=== PATIENT | female | born 1995 | race Caucasian/White ===

== ENCOUNTER → 2018-03-29 13:04 | Outpatient (CLI) | payer MEDICAID, SELFPAY ==
--- NOTE | 2018-03-29 13:07 | US_ITS ---
US breast LT complete - Ordering Physician: Chadwick Walters MD Patient Age: 23 years: Female HISTORY: ITS.REASON: BREAST CYST palpable area left breast one year TECHNIQUE: Ultrasound left breast COMPARISON : December 2009 ultrasound left breast FINDINGS 5:00: Today's studies do reveal a hypoechoic more likely solid nodule at 5:00 left breast towards Central breast, near nipple.(Unlikely Cyst with prominent debris, particularly with the lack of good transmission seen here.). There is mild/moderate hyperechoic rim about this otherwise homogeneous hypoechoic nodule. Overall this entire area measures up to 14 maximum length X just less than 1 cm AP. (There is a subtle mildly hypoechoic ringlike halo about this solid nodule associated included in this 14 mm x 10 mm measurement) . In this age younger patient with a smooth round margin I suspect this most likely likely reflects a benign fibroadenoma ..- This could be confirmed with ultrasound-guided FNA or excisional biopsy.. Either Percutaneous or surgical biopsy warranted, particularly since it is developed an become evident since 2014 left breast ultrasound . Perhaps consider full excision of this mass for definitive removal once and for all.. Less desirable alternative would be follow-up in 3 months for this by far most likely benign feature. 11:00: deep left breast there is a small 5.9 mm length dense 3.7 mm AP hypoechoic solid nodule. Likely a second small fibroadenoma Moderately dense breast otherwise encountered. . No cyst identified Axillary Survey reveals no suspicious nodes. The largest benign-appearing lymph node measuring up to nearly 1.5 cm slightly bilobed but with normal Central fat and thin cortex. IMPRESSION: ...... 1. . 5 o'clock position left breast The palpable area here corresponds up to 14 mm solid appearing breast nodule. . 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 2. Consider a given its overall size and progression since previous study, suggesting biopsy or excision.. These would confirm benign character as anticipated.. A less desirable but Not unreasonable alternative would be follow-up ultrasound 3 months, & could be offered 3. At 11:00. Small near 6 mm solid nodule, deep left breast. Likely a second small fibroadenoma.. Follow-up ultrasound in 6-8 months suggested to follow this area BI-RADS Category: 4 minimally Suspicious mass/nodule.. Likely benign fibroadenoma. 5:00 left breast RECOMMENDED FOLLOW-UP: BIO - BIOPSY RECOMMENDED ultrasound-guided biopsy, or a definitive surgical excision recommended. (A letter has been sent to the patient regarding results of the study.)
== END ==
PROVIDERS: Family Provider Family Medicine; Visit Provider Obstetrics & Gynecology
DX: N60.09 Solitary cyst of unspecified breast (principal)
CPT/HCPCS: 76641

== ENCOUNTER → 2018-04-17 10:52 | Outpatient (CLI) | payer MEDICAID, SELFPAY ==
[2018-04-17 10:55] LABS: Microscopic, Urine URINE MICROSCOPIC (MICROSCOPIC)
[2018-04-17 11:25] LABS: Appearance,Urine CLEAR (Clear); Bilirubin,Urine Negative (Negative); Blood, Urine Negative (Negative); Color,Urine YELLOW (Yellow); Glucose,Urine (UA) Negative (Negative); Ketones,Urine Negative (Negative); Leukocyte Esterase,Urine Negative (Negative); Nitrate,Urine Negative (Negative); Protein,Urine Negative (Negative); Specific Gravity, Urine <= 1.005 (1.005-1.030); Urobilinogen,Urine 0.2 EU/dl (0.2)
[2018-04-17 11:57] LABS: Basophils # 0.1 K/mm3 (0-0.2); Basophils % 0.6 % (0.1-2.0); Eosinophils # 0.3 K/mm3 (0.0-0.4); Eosinophils % 3.5 % (0.1-12.0); Hematocrit 42.5 % (37.0-47.0); Hemoglobin 13.9 g/dL (12.2-16.2); Lymphocytes # 2.3 K/mm3 (0.7-4.5); Lymphocytes % 25.7 K/mm3 (10-50); Mean Corpuscular HGB Conc 32.8 g/dL (31.8-35.4); Mean Corpuscular Hemoglobin 32.3 pg (27.0-31.2); Mean Corpuscular Volume 98.3 fl (81-99); Mean Platelet Volume 7.1 fl (7.4-10.4); Monocytes # 0.5 K/mm3 (0.1-1.0); Neutrophils # 5.9 K/mm3 (1.8-7.8); Neutrophils % 65.2 % (37.0-80.0); Platelet Count 369 K/mm3 (142-424); Red Blood Count 4.32 M/mm3 (4.20-5.40); Red Cell Distribution Width 12.2 % (11.5-17.5); White Blood Count 9.1 K/mm3 (4.8-10.8)
[2018-04-17 12:17] LABS: Bacteria,Urine Trace /lpf; Urine Pregnancy, HCG Qual. Negative (Negative); WBC,Urine Occasional #/hpf (0-3)
[2018-04-17 12:50] LABS: Alanine Aminotransferase 33 U/L (12-78); Albumin/Globulin Ratio 1.1 (1.1-1.8); Alkaline Phosphatase 90 U/L (46-116); Anion Gap 12.3 mEq/L (5-15); Aspartate Amino Transferase 18 U/L (15-37); Bilirubin,Total 0.3 mg/dL (0.2-1.0); Blood Urea Nitrogen 13 mg/dL (7-18); Calcium 9.3 mg/dL (8.5-10.1); Carbon Dioxide 27 mmol/L (21.0-32.0); Chloride 104 mmol/L (98-107); Creatinine,Serum 0.56 mg/dL (0.55-1.02); Estimated Glomerular Filt Rate 133 ml/min (>60); GFR (African American) 161 ML/MIN (>60); Globulin 3.6 gm/dl (1.3-3.2); Glucose 88 mg/dL (74-106); Potassium 4.3 mmoL/L (3.5-5.1); Sodium 139 mmol/L (136-145); Total Protein,Serum 7.6 gm/dL (6.4-8.2)
== END ==
PROVIDERS: Visit Provider Obstetrics & Gynecology
DX: Z01.818 Encounter for other preprocedural examination (principal); N87.9 Dysplasia of cervix uteri, unspecified
CPT/HCPCS: 36415; 80053; 81001; 81025; 85025

== ENCOUNTER → 2018-05-02 11:19 | Outpatient (CLI) | payer MEDICAID, SELFPAY ==
--- NOTE | 2018-05-02 11:20 | US_ITS ---
US breast LT complete, US organ site (breast) US biopsy guidance, Ordering Physician: Alex Long MD Patient Age: 23 years: Female HISTORY: ITS.REASON: LEFT breast nodule at5:00 seen on previous ultrasound left breast 03/29/2018. Previously noted to be th no palpable TECHNIQUE: Ultrasound LEFT breast followed by ultrasound-guided core biopsies of left discrete hypoechoic left breast nodule ---------FINDINGS AND PROCEDURE: ======= ULTRASOUND LEFT BREAST; Ovoid Solid nodule is identified 5 o'clock position left breast. Measures up to 1.2 cm maximum dimension. .These images also determined the best approach for access to perform aspiration biopsy of this nodule. Scanning by Dr. Peters ======= ULTRASOUND-GUIDED Tommy-Cut core BIOPSY LEFT BREAST . . patient received Xanax 0.5mg Prior to the procedure for comfort and mild sedation. Following sterile preparation as well as local skin, and cautious deeper placement of Xylocaine anestheticUnder ultrasound guidance the true cut biopsy needle was advanced to the nodule and positioned. Position of the needle sample trough was confirmed by ultrasound within the nodule on majority of these 5 Tommy-Cut biopsy passes. However I would with dense breast there is less than a robust throw of the core biopsy needle. Mainly utilized 16-gauge needle with 18-gauge on the last pass. (The latter which account less resistance along this established tract and appeared on target as well). Several core biopsy specimen material from the Left breast nodule were observed in formalin and submitted for histology Patient tolerated procedure well. ======= PATHOLOGY/Histology Diagnosis..Negative for carcinoma Benign breast tissue with proliferative fibrocystic changes. Rare microcalcifications. Note: I called and discussed this case with the reading pathologist as I anticipated fibroadenoma diagnosis.. Still this could be a focal area of fibrous change but would favor & expected a fibroadenoma by ultrasound appearance. Thus Would Suggest 4-6 month follow-up to confirm stable benign character of this nodule If Desire further investigation a more aggressive mammotome percutaneous biopsy could be offered or performed., Or possibly an excisional biopsy if preferred for total excision. Since I strongly favor this is a benign nodule the follow-up in 4-6 months I believe would be reasonable .............IMPRESSION: ..................... 1.2 cm ovoid hypoechoic nodule 5 o'clock position LEFT breast identified & targeted for today's biopsy A total of 5 Tommy-Cut core biopsies passes were obtained in this region each after verifying needle was in satisfactory position.. There was less than robust throw with firing of each Tommy-Cut needle pass in this very dense breast tissue.-However we obtained Obtain generous amount core biopsy tissue. . Pathology report demonstrated benign findings on pathology-benign fibrocystic changes, but did not Confirm fibroadenoma as anticipated by ultrasound.. . These results were also discussed with Dr. Long Currently Suggest follow-up LEFT breast ultrasound in 4- 6 months to confirm relative stability by far most likely benign solid nodule... . Alternatively if this remains a concern to the patient or, or progresses with palpation/clinically ... A more aggressive mammotome biopsy could be performed. Certainly if there is any progressive enlargement clinically-this may warrant repeat biopsy BI-RADS Category: 3 Probably Benign Finding Short Term Follow-up most likely benign feature but with benefit from 4- 6 month follow-up ultrasound left breast RECOMMENDED FOLLOW-UP: 6M - 6 MONTH FOLLOW-UP LEFT breast ultrasound. 4-6 months recommended this 23-year-old, along with santiago
== END ==
PROVIDERS: Visit Provider Surgery
DX: N63.23 Unspecified lump in the left breast, lower outer quadrant (principal)
CPT/HCPCS: 19083; 76641; 76942

== ENCOUNTER → 2018-08-20 10:59 | Outpatient (CLI) | payer MEDICAID, SELFPAY ==
--- NOTE | 2018-08-20 11:03 | US_ITS ---
US breast LT complete Ordering Physician: Alex Long MD Patient Age: 23 years: Female HISTORY: ITS.REASON: Nodule TECHNIQUE: Ultrasound left breast including axillary survey COMPARISON :03/29/2018, 1714May 02, 2018 FINDINGS 5:00 nodule deep breast near chest wall again seen. This resides More central breast and appears fairly stable with no appreciable change. Well-defined margin, ovoid slight hypoechoic nodule at 5 o'clock position left breast.. It measures 1.2 cm length x 1 cm transverse x 0.7 cm AP. This is show no appreciable change when measured from similar points and compared back to the March 2018 and April 2018 ultrasound left breast study... At 5:00 outer breast to again see a small hypoechoic nodule measuring 6.1 mm. Is seen no significant change Axillary survey unremarkable. ------IMPRESSION: 2 stable nodular densities are again seen at the right breast-have not changed appreciably since last years studies further support benign/ indolent nature.: .... The more generous nodule at deep breast 5 o'clock position appears stable with no appreciable change since last years studies... (Biopsy of this region was performed Apr 2018 revealed fibrocystic changes but did not reveal definitive fibroadenoma as was anticipated) ... The smaller nodule at the outer breast 5:00 appears fairly stable as well & can be followed. I would suggest a follow-up ultrasound again in 6 months since these areas of remained stable by ultrasound.. .. However We could perform repeat biopsy of the larger nodule if so desired if it changes or enlarges; or remains a concern clinically BI-RADS Category: 3 Probably Benign Finding Short Term Follow-up RECOMMENDED FOLLOW-UP: RECOMMENDED FOLLOW-UP: 6M - 6 MONTH FOLLOW-UP (A letter has been sent to the patient regarding results of the study.)
== END ==
PROVIDERS: Visit Provider Surgery
DX: N63.23 Unspecified lump in the left breast, lower outer quadrant (principal)
CPT/HCPCS: 76641

== ENCOUNTER → 2018-09-20 08:17 | Outpatient (CLI) | payer MEDICAID, SELFPAY ==
--- NOTE | 2018-09-20 08:21 | US_ITS ---
US gallbladder Ordering Physician: Alex Long MD Patient Age: 23 years: Female HISTORY: ITS.REASON: abdominal pain and diarrhea TECHNIQUE: Ultrasound right upper quadrant. COMPARISON :April 2013 ultrasound right upper quadrant FINDINGS Pancreas. Unremarkable head body and medial tail are well visualized. Liver no focal lesions. No biliary ductal dilatation. Portal vein normal appearance is is hepatic vein survey. Gallbladder. No gallstones. Minimal sludge in gallbladder. Gallbladder wall normal thickness. Common duct normal diameter 3.5 mm at hilum of liver. Right kidney appears normal measuring 2.6 seem in length no hydronephrosis nor mass. IMPRESSION . no gallstones. Minimal sludge in gallbladder. Otherwise unremarkable right upper quadrant ultrasound. .
== END ==
PROVIDERS: Visit Provider Surgery
DX: R10.9 Unspecified abdominal pain (principal); R19.7 Diarrhea, unspecified
CPT/HCPCS: 76705

== ENCOUNTER → 2018-09-21 16:26 | Outpatient (CLI) | payer MEDICAID, SELFPAY | PROVIDERS: Visit Provider Nurse Practitioner Obstetrics & Gynecology | DX: N76.4 Abscess of vulva (principal) | CPT/HCPCS: 87070; 87077; 87186; 87205 ==

== ENCOUNTER → 2018-12-12 09:45 | Outpatient (CLI) | payer MEDICAID, SELFPAY | PROVIDERS: Visit Provider Nurse Practitioner Obstetrics & Gynecology | DX: N76.4 Abscess of vulva (principal) | CPT/HCPCS: 87070; 87077; 87186; 87205 ==

== ENCOUNTER → 2019-01-10 12:22 | Outpatient (CLI) | payer MEDICAID, SELFPAY ==
[2019-01-10 15:05] LABS: HCG,Quantitative 1 mIU/mL
== END ==
PROVIDERS: Visit Provider Nurse Practitioner Obstetrics & Gynecology
DX: Z34.90 Encounter for supervision of normal pregnancy, unspecified, unspecified trimester (principal)
CPT/HCPCS: 36415; 84702

== ENCOUNTER → 2019-05-14 09:44 | Outpatient (CLI) | payer MEDICAID, SELFPAY | PROVIDERS: Visit Provider Obstetrics & Gynecology | DX: Z34.90 Encounter for supervision of normal pregnancy, unspecified, unspecified trimester (principal) | CPT/HCPCS: 36415; 80305; 84443; 85025; 86592; 86703; 86762; 86850; 87340; 87380; G0432 ==

== ENCOUNTER → 2019-05-14 12:51 | Outpatient (CLI) | payer MEDICAID, SELFPAY ==
[2019-05-14 10:15] LABS: Basophils % 0.3 % (0.1-2.0); Eosinophils # 0.1 K/mm3 (0.0-0.4); Eosinophils % 0.9 % (0.1-12.0); Hematocrit 37.3 % (37.0-47.0); Hemoglobin 12.1 g/dL (12.2-16.2); Lymphocytes # 1.8 K/mm3 (0.7-4.5); Lymphocytes % 20.7 % (10-50); Mean Corpuscular HGB Conc 32.5 g/dL (31.8-35.4); Mean Corpuscular Volume 98.4 fl (81-99); Mean Platelet Volume 8.1 fl (7.4-10.4); Monocytes # 0.4 K/mm3 (0.1-1.0); Monocytes % 4.7 % (1.7-9.3); Neutrophils # 6.4 K/mm3 (1.8-7.8); Neutrophils % 73.3 % (37.0-80.0); Platelet Count 348 K/mm3 (142-424); Red Blood Count 3.79 M/mm3 (4.20-5.40); Red Cell Distribution Width 12.1 % (11.5-17.5); White Blood Count 8.8 K/mm3 (4.8-10.8)
[2019-05-14 11:55] LABS: Thyroid Stimulating Hormone 1.79 uIU/ml (0.358-3.740)
--- NOTE | 2019-05-14 12:53 | US_ITS ---
PROCEDURE: US THYROID CLINICAL INDICATION: ABNORMAL THYROID A enlarged thyroid COMPARISON: No exams were available for comparison FINDINGS: Right lobe: 4.4 x 1.2 x 1.7 cm Left lobe: 4.3 x 1.6 x 1.8 cm Isthmus: 2 mm in thickness Additional findings: Homogeneous echogenicity. No discrete mass or cyst evident IMPRESSION: Mildly enlarged thyroid gland. No nodules apparent Dictated by: Nickolas Beltrán MD 05/14/2019 19:36 Electronically signed by Nickolas Beltrán MD in [place] 05/14/2019 19:36
[2019-05-14 19:40] LABS: Amphetamine/Metha Screen,Urine Negative ng/mL (<1000); Barbiturates Screen,Urine Negative ng/mL (<200); Benzodiazepines Screen,Urine Negative ng/mL (<200); Cannabinoid Screen,Urine Negative ng/mL (<50); Cocaine Screen,Urine Negative ng/mL (<300); Methadone Screen,Urine Negative ng/mL (<300); Opiate Screen,Urine Negative ng/mL (<300); Phencyclidine Screen,Urine Negative ng/mL (<25)
[2019-05-15 07:35] LABS: Hepatitis B Surface Antigen Negative (Negative); Hepatitis C Antibody 0.1 s/co ratio (0.0-0.9)
[2019-05-15 11:46] LABS: HIV Screen 4th Generation wRfx Non Reactive (Non Reactive); Rapid Plasma Reagin Ab Titer Non Reactive (NonRea<1:1); Rubella Antibodies, IgG 9.58 index (Immune >0.99)
== END ==
PROVIDERS: Visit Provider Obstetrics & Gynecology
DX: R94.6 Abnormal results of thyroid function studies (principal)
CPT/HCPCS: 36415; 76536; 80305; 84443; 85025; 86592; 86703; 86762; 86850; 87340; 87380; G0432

== ENCOUNTER → 2019-08-28 10:19 | Outpatient (CLI) | payer OTHER, SELFPAY ==
--- NOTE | 2019-08-28 10:19 | US_ITS ---
PROCEDURE: US OB /MATERNAL DETAIL CLINICAL INDICATION: US OB Complete Anatomy exam COMPARISON: No exams were available for comparison FINDINGS: There is a single live fetus in cephalic presentation. heart body motion noted. Placenta is fundal in implantation and grade 1. Complete survey performed and was unremarkable on the submitted images as in PACS. No discrete anomalies identified on survey imaging by technologist. Active fetus. Three-vessel cord with satisfactory umbilical cord insertion. 4- chamber heart noted. Survey of brain & ventricles Unremarkable. Face and neck survey unremarkable. Diaphragm and chest views unremarkable. Abdomen: Both kidneys noted and unremarkable. Stomach noted and satisfactory. Spine: Survey of the spine satisfactory with no anomalies identified nor imaged. Both arms and legs noted. Amniotic Fluid: Adequate. Maternal adnexa: No significant findings. Measurements: Average ultrasound age 19weeks 6days. Gestational Age 20 weeks 0 days Estimated due date by ultrasound age 0701/16/2020. Estimated weight 320g BPD = 20weeks 1day OFD = 20 weeks 1 day HC = 19weeks 2days AC = 20weeks FL = 20weeks Growth Percentile= 40% Heart Rate = 139bpm Cerebellum = 19weeks 6days Humerus = 20weeks 2days HC/AC is 1.13 CI is 0.8 FL/BPD is 0.69 FL/AC is 0.22 IMPRESSION: There is a live intrauterine gestation in cephalic presentation with an average ultrasound age 19 weeks and 6 days. No obvious anomalies. Please see above for detail Dictated by: Nickolas Beltrán MD 08/28/2019 17:34 Electronically signed by Nickolas Beltrán MD in [place] 08/28/2019 17:34
== END ==
LOC: RAD 10:19
PROVIDERS: PCP Obstetrics & Gynecology; Visit Provider Obstetrics & Gynecology
DX: Z36.0 Encounter for antenatal screening for chromosomal anomalies (principal)
CPT/HCPCS: 76811

== ENCOUNTER → 2019-10-22 12:59 | Outpatient (CLI) | payer OTHER, SELFPAY ==
[2019-10-22 14:07] LABS: Glucose,Fasting 80 mg/dl (74-100)
[2019-10-22 17:03] LABS: Glucose 1 Hour 151 mg/dL (74-100)
== END ==
PROVIDERS: Visit Provider Obstetrics & Gynecology
DX: Z34.90 Encounter for supervision of normal pregnancy, unspecified, unspecified trimester (principal)
CPT/HCPCS: 36415; 82951

== ENCOUNTER → 2019-11-12 07:14 | Outpatient (CLI) | payer OTHER, SELFPAY ==
[2019-11-12 08:06] LABS: Glucose,Fasting 85 mg/dl (74-100)
[2019-11-12 09:22] LABS: Glucose 1 Hour 165 mg/dL (74-100)
[2019-11-12 10:06] LABS: Glucose 2 Hour 147 mg/dL (74-100)
[2019-11-12 10:47] LABS: Glucose 3 Hour 128 mg/dL (74-100)
== END ==
PROVIDERS: Visit Provider Obstetrics & Gynecology
DX: Z34.90 Encounter for supervision of normal pregnancy, unspecified, unspecified trimester (principal)
CPT/HCPCS: 36415; 82951

== ENCOUNTER → 2019-12-10 10:24 | Outpatient (CLI) | payer OTHER, SELFPAY ==
--- NOTE | 2019-12-10 10:24 | US_ITS ---
PROCEDURE: US OB FOLLOW UP CLINICAL INDICATION: US OB Growth and ABBY- SGA COMPARISON: US OB /MATERNAL DETAIL from 08/28/2019 FINDINGS: The fetus is in a cephalic presentation. The placenta is in an anterior-posterior wraparound presentation. The amniotic fluid is at the lower limits of normal. Visualized anatomy is unremarkable. The fetus is active. Average gestational age is approximately 34 weeks. The heart rate is 128 beats per minute IMPRESSION: Amniotic fluid at the lower limits of normal otherwise unremarkable Dictated by: Ramiro Delgado 12/10/2019 12:15 Electronically signed by Ramiro Delgado in [place] 12/10/2019 12:15
== END ==
LOC: RAD 10:24
PROVIDERS: PCP Obstetrics & Gynecology; Visit Provider Obstetrics & Gynecology
DX: O36.5990 Maternal care for other known or suspected poor fetal growth, unspecified trimester, not applicable or unspecified (principal)
CPT/HCPCS: 76816; 86403

== ENCOUNTER → 2019-12-10 15:27 | Outpatient (CLI) | payer OTHER, SELFPAY | PROVIDERS: Visit Provider Obstetrics & Gynecology | DX: Z34.90 Encounter for supervision of normal pregnancy, unspecified, unspecified trimester (principal) | CPT/HCPCS: 86403 ==

== ENCOUNTER → 2020-01-06 13:06 | Outpatient (CLI) | payer OTHER, SELFPAY ==
[2020-01-06 13:26] LABS: Basophils % 0.4 % (0.1-2.0); Eosinophils # 0.1 K/mm3 (0.0-0.4); Eosinophils % 1.2 % (0.1-12.0); Hematocrit 28.5 % (37.0-47.0); Hemoglobin 9.7 g/dL (12.2-16.2); Lymphocytes % 22.3 % (10-50); Mean Corpuscular HGB Conc 33.9 g/dL (31.8-35.4); Mean Corpuscular Hemoglobin 28.4 pg (27.0-31.2); Mean Corpuscular Volume 83.9 fl (81-99); Mean Platelet Volume 8.5 fl (7.4-10.4); Monocytes # 0.4 K/mm3 (0.1-1.0); Monocytes % 4.5 % (1.7-9.3); Neutrophils # 6.4 K/mm3 (1.8-7.8); Neutrophils % 71.7 % (37.0-80.0); Platelet Count 359 K/mm3 (142-424); Red Cell Distribution Width 13.5 % (11.5-17.5); White Blood Count 8.9 K/mm3 (4.8-10.8)
[2020-01-06 16:51] LABS: Coronavirus 19 IgG Antibody Negative (Negative); Coronavirus 19 IgM Antibody Negative (Negative)
== END ==
PROVIDERS: Visit Provider Obstetrics & Gynecology
DX: Z01.818 Encounter for other preprocedural examination (principal)
CPT/HCPCS: 36415; 85025; 86328; 86850

== ENCOUNTER 2020-01-07 05:25 | Inpatient (IN) | payer OTHER, SELFPAY ==
[2020-01-07] VITALS (17 sets, daily range): BP systolic 124–149; BP diastolic 62–93; PULSE 59–87; RESP 12–27; TEMP 36.4–36.8; O2SAT 98–100; BMI 30.3
[2020-01-07 06:07] LABS: Microscopic, Urine URINE MICROSCOPIC (MICROSCOPIC)
[2020-01-07 06:25] LABS: Appearance,Urine CLEAR (Clear); Bilirubin,Urine Negative (Negative); Blood, Urine Negative (Negative); Color,Urine YELLOW (Yellow); Glucose,Urine (UA) Negative (Negative); Ketones,Urine Negative (Negative); Leukocyte Esterase,Urine Negative (Negative); Nitrate,Urine Negative (Negative); PH,Urine 7.5 (5.0-8.5); Protein,Urine Negative (Negative); Urobilinogen,Urine 0.2 EU/dl (0.2)
[2020-01-07 06:36] LABS: Amphetamine/Metha Screen,Urine Negative ng/ml (<1000)
[2020-01-07 06:37] LABS: Barbiturates Screen,Urine Negative ng/ml (<200); Benzodiazepines Screen,Urine Negative ng/ml (<200)
[2020-01-07 06:38] LABS: Chloride 105 mmol/L (98-107); Sodium 135 mmol/L (136-145)
[2020-01-07 06:38] LABS: Cannabinoid Screen,Urine Negative ng/ml (<50)
[2020-01-07 06:39] LABS: Cocaine Screen,Urine Negative ng/ml (<300); Methadone Screen,Urine Negative ng/ml (<300)
[2020-01-07 06:40] LABS: Opiate Screen,Urine Negative ng/ml (<300)
[2020-01-07 06:41] LABS: Bacteria,Urine 1+ /lpf; Phencyclidine Screen,Urine Negative ng/ml (<25)
[2020-01-07 06:41] LABS: Anion Gap 7.5 mEq/L (5-15); Blood Urea Nitrogen 2 mg/dl (7-17); Calcium 8.5 mg/dl (8.4-10.2); Carbon Dioxide 25 mmol/L (22.0-30.0); Creatinine Clearance Estimated 256 mL/min (50-200); Estimated Glomerular Filt Rate 194 ml/min (>60); GFR (African American) 235 ML/MIN (>60); Glucose 87 mg/dl (74-100)
[2020-01-07 06:43] LABS: Potassium 2.5 mmoL/L (3.5-5.1)
--- NOTE | 2020-01-07 07:08 | HMH.PHAINT ---
MEDICATION RECONCILIATION COMPLETED ON PATIENT USING LIST FROM MD OFFICE. -EDUARDA LEÓN, AMARILISD
[2020-01-07 11:40] LABS: Chloride 108 mmol/L (98-107)
[2020-01-07 11:41] LABS: Potassium 3.1 mmoL/L (3.5-5.1); Sodium 138 mmol/L (136-145)
[2020-01-07 11:43] LABS: Alanine Aminotransferase 20 U/L (12-78); Aspartate Amino Transferase 29 U/L (14-36); Blood Urea Nitrogen 2 mg/dl (7-17); Creatinine Clearance Estimated 256 mL/min (50-200); Estimated Glomerular Filt Rate 194 ml/min (>60); GFR (African American) 235 ML/MIN (>60)
[2020-01-07 11:44] LABS: Albumin Level 2.6 g/dl (3.5-5.0); Albumin/Globulin Ratio 0.9 (1.1-1.8); Alkaline Phosphatase 194 U/L (38-126); Anion Gap 8.1 mEq/L (5-15); Bilirubin,Total 0.3 mg/dl (0.2-1.3); Calcium 8.1 mg/dl (8.4-10.2); Carbon Dioxide 25 mmol/L (22.0-30.0); Globulin 2.9 g/dL (1.3-3.2); Glucose 72 mg/dl (74-100); Total Protein,Serum 5.5 g/dl (6.3-8.2)
[2020-01-07 13:29] LABS: Potassium 3.2 mmoL/L (3.5-5.1)
--- NOTE | 2020-01-07 15:33 | HMH.ANESCL ---
[facility] Anesthesia Checklist - Structural Data Admitted From: Inpatient Planned Operative Procedure/s: c/section Consent for Planned Operative Procedure(s) Verified: Yes - Airway Assessment C-Spine Mobility Assessed: Yes TMJ Mobility Assessed: Yes Dentition: Good Dentition - Neurological Assessment Level of Consciousness: Awake, Alert, Appropriate - Anesthesia Plan Anesthesia Risk discussed: Yes Anesthesia Plan: Verified ASA Class: II Anesthesia Type: Spinal [facility] History I have reviewed the patient's past medical history: Yes Medical History: Denies:: Cancer, Diabetes Mellitus Type 1, Diabetes Mellitus Type 2, MRSA *Have you ever received a pneumonia vaccine?: No *Have you received a flu vaccine this season?: Yes Other Medical History: Reports: Other Anesthesia experience/problems:: none Laterality Cases: Bilateral: Tonsillectomy Other Surgeries: Yes: , Other Amputation: No Fractures: No - *Social History Smoking Status: Former smoker Tobacco Type: cigarettes # Packs/Day (cigarettes): 1 Alcohol Intake: current Alcohol Intake Frequency:: holidays/special occasions only Substance Use Type: denies use *Occupational Status:: employed *Travel in the last 8 weeks: None Family Hx:: Hypertension, Cancer Para: 1
--- NOTE | 2020-01-07 15:34 | P.PN_ITS ---
[facility] Anesthesia Record Part I Intake, IV Amount: 1,500 Estimated blood loss (mL): 700 Urine output (mL): 350 Blood Pressure: 149/79 SaO2: 99 Pulse Rate: 75 Respiratory Rate: 12 Temperature: 98 F Patient is:: Awake, Stable Stable to PACU at:: 15:30
--- NOTE | 2020-01-07 17:26 | SUR.PHASEI ---
Patient stable, no pain, small amount bleeding, VSS, spinal starting to wear off and ready to go at 1600 after arriving to PACU at 1530. No orders to send patient to OB. Called Dr Hoff at 1605, spoke to Dr Luis Eduardo Keen with a patient. Orders would be put in soon. Checked for orders every 5 minutes for the next 40 minutes. Called OB, spoke to Abby Goodman RN who had been looking for orders as well. Gave report to Abby, stating we would be bringing patient up as soon as orders were in.
--- NOTE | 2020-01-07 17:36 | SUR.PHASEI ---
Patient transported via bed to OB after receiving MD two orders, one for a med, and a diet order.
--- NOTE | 2020-01-07 17:40 | P.OP_ITS ---
Date of procedure: 01/07/20 Pre-op Diagnosis:: 1. 39 wks 2. Previous C Section Post-op Diagnosis:: Same Procedure performed:: Repeat Low Transverse C Section Surgeon:: Nereyda Hoff MD CULLED FRUIT PACKER:: Faustino Sanchez Anesthesia: spinal Estimated blood loss (mL): 700 Operative findings:: Liveborn female infant, apgars 8 & 9 Operative note:: The patient was taken to the OR and spinal was administered without difficulty. She was prepped and draped in normal sterile fashion. A pfannenstiel skin incision was made with the scalpel and carried down to the fascia. The fascia was incised in the midline and sharply dissected off the rectus muscles. The muscles were in the midline and the peritoneum was entered sharply and extended bluntly. The Ariel-O self retaining retractor was placed in the abdomen and a bladder flap was created. The uterus was incised in the lower uterine segment in a transverse fashion and extended bluntly. Amniotomy was performed and clear fluid noted. The infant was delivered in controlled fashion, without complication or shoulder dystocia. The infant was vigorous at and handed to awaiting pediatricians for evaluation after cord clamped and cut. Cord blood was collected and a cord segment was preserved. The placenta was manually extracted and noted to be intact. The uterus was repaired with 0- vicryl in a running/locked fashion. The peritoneum was closed with 2-0 vicryl in a running fashion. The fascia was closed with #1 vicryl in a running fashion. The subcutaneous fat was closed with 2-0 vicryl in an interrupted fashion. The skin was closed with carlos. The patient tolerated the procedure well. Sponge, lap, needle and instrument counts were correct x 2. She was taken to PACU awake and in stable condition. Condition: stable Disposition: PACU Complications:: none
[2020-01-07 18:50] LABS: Microscopic,Cath URINE MICROSCOPIC (MICROSCOPIC)
[2020-01-07 19:27] LABS: Appearance,Urine/Cath CLEAR (Clear); Bilirubin,Cath Negative (Negative); Blood, Urine/Cath 3+ (Negative); Color,Urine/Cath YELLOW (Yellow); Glucose,Urine/Cath (UA) Negative (Negative); Ketones,Urine/Cath Negative (Negative); Leukocyte Esterase,Cath Negative (Negative); Nitrate,Cath Negative (Negative); Protein,Urine/Cath Negative (Negative); Specific Gravity, Urine/Cath 1.015 (1.005-1.030); Urobilinogen,Cath 0.2 EU/dl (0.2)
[2020-01-07 19:36] LABS: Bacteria,Urine/Cath TRACE /lpf; RBC,Urine/Cath Occasional # /hpf (0-3)
[2020-01-08 07:06] LABS: Chloride 106 mmol/L (98-107); Hematocrit 25.2 % (37.0-47.0); Hemoglobin 8.3 g/dL (12.2-16.2); Sodium 135 mmol/L (136-145)
[2020-01-08 07:07] LABS: Potassium 3.4 mmoL/L (3.5-5.1)
[2020-01-08 07:09] LABS: Alanine Aminotransferase 21 U/L (12-78); Albumin Level 2.6 g/dl (3.5-5.0); Albumin/Globulin Ratio 0.9 (1.1-1.8); Alkaline Phosphatase 170 U/L (38-126); Anion Gap 6.4 mEq/L (5-15); Aspartate Amino Transferase 31 U/L (14-36); Bilirubin,Total 0.3 mg/dl (0.2-1.3); Blood Urea Nitrogen 2 mg/dl (7-17); Calcium 8.4 mg/dl (8.4-10.2); Carbon Dioxide 26 mmol/L (22.0-30.0); Creatinine Clearance Estimated 256 mL/min (50-200); Estimated Glomerular Filt Rate 194 ml/min (>60); GFR (African American) 235 ML/MIN (>60); Globulin 2.8 g/dL (1.3-3.2); Glucose 77 mg/dl (74-100); Total Protein,Serum 5.4 g/dl (6.3-8.2)
--- NOTE | 2020-01-08 08:14 | P.PN_ITS ---
[facility] Anesthesia Record Part II Discharge Time: 16:55 Destination: Obstetric PACU nurse assessment reviewed?: Yes Patient Condition:: Good Anesthesia Complications:: None Swallowing reflex intact?: Yes Cyanosis?: No Blood Pressure: 148/84 Pulse Rate: 59 Temperature: 97.7 F Mental Status: Alert & Oriented Pain level:: 0 Nausea and/or vomitting:: None Intake, IV Amount: 0
[2020-01-08 08:15] VITALS: BP 148/84; PULSE 59; TEMP 36.5
[2020-01-08 08:50] VITALS: BP 128/80; PULSE 76; RESP 18; TEMP 36.6; O2SAT 99
--- NOTE | 2020-01-08 11:19 | HMH.ACPN2 ---
Internal Medicine - PN: Subj *Date: 01/08/20 *Time: 11:19 Interval history: POD #1 repeat CS No unusual complaints Ambulating and voiding without difficulty Tolerating regular diet Asymptomatic with nfznb-[id number] anemia Potassium stable 3.4 after infusion Exam Vital signs and Labs for Last 24 Hours: Temp Pulse Resp BP Pulse Ox 97.9 F 76 18 128/80 99 01/08/20 08:50 01/08/20 08:50 01/08/20 08:50 01/08/20 08:50 01/08/20 08:50 Laboratory Results - last 24 hr 01/07/20 11:20: Sodium 138, Potassium 3.1 L D, Chloride 108 H, Carbon Dioxide 25, Anion Gap 8.1, BUN 2 L, Creatinine 0.40 L, Estimated Creat Clear 256, Estimated GFR 194, Est GFR ( Amer) 235, Glucose 72 L, Calcium 8.1 L, Total Bilirubin 0.3, AST 29, ALT 20, Alkaline Phosphatase 194 H, Total Protein 5.5 L, Albumin 2.6 L, Globulin 2.9, Albumin/Globulin Ratio 0.9 L 01/07/20 13:15: Potassium 3.2 L 01/07/20 14:32: Urine Color Yellow, Urine Appearance Clear, Urine pH 8.0, Ur Specific [place] 1.015, Urine Protein Negative, Urine Glucose (UA) Negative, Urine Ketones Negative, Urine Blood 3+, Urine Nitrate Negative, Urine Bilirubin Negative, Urine Urobilinogen 0.2, Ur Leukocyte Esterase Negative, Urine RBC Occasional, Urine WBC 3-5, Ur Squamous Epith Cells None, Ur Transition Epith Cell 3-5, Urine Bacteria Trace 01/08/20 06:23: Hgb 8.3 L, Hct 25.2 L 01/08/20 06:23: Sodium 135 L, Potassium 3.4 L, Chloride 106, Carbon Dioxide 26, Anion Gap 6.4, BUN 2 L, Creatinine 0.40 L, Estimated Creat Clear 256, Estimated GFR 194, Est GFR ( Amer) 235, Glucose 77, Calcium 8.4, Total Bilirubin 0.3, AST 31, ALT 21, Alkaline Phosphatase 170 H, Total Protein 5.4 L, Albumin 2.6 L, Globulin 2.8, Albumin/Globulin Ratio 0.9 L I & O for Last 24 hours: Intake & Output 01/05/20 01/06/20 01/07/20 01/08/20 11:59 11:59 11:59 11:59 Intake Total 1500 / 1500 Output Total 1200 / 1200 Balance 300 / 300 Weight 166 lb Narrative: CONSTITUTIONAL: no acute distress HEENT: mucous membranes moist PULMONARY: breathing unlabored without audible wheezes CV: no tachycardia or visible JVD; normal LE peripheral pulses ABD: soft, ND; appropriately tender but no rebound/guarding : fundus firm at/below umbilicus SKIN: incision well approximated with no drainage, erythema or induration EXT: 1+ edema LEs NEURO: alert/oriented, no altered mental status PSYCH: appropriate mood and demeanor without anxiety/depression Assessment and Plan (1) Previous section Current visit: No Status: Acute Category: Surgical Code(s): Z98.891 - History of uterine scar from previous surgery (2) Anemia complicating Current visit: Yes Status: Acute Category: Medical Code(s): O99.019 - Anemia complicating , unspecified trimester - Assessment and plan all Dx Assessment and Plan for all problems:: Routine postop care Advance care as tolerated PNV with FeSO4
--- NOTE | 2020-01-08 11:22 | HMH.PHAVTE ---
[facility] Pharmacy VTE Monitoring - Patient Demographics Admission date: 01/07/20 Report Date: 01/08/20 Time: 11:22 Allergies/Adverse Reactions: Patient Allergies No Known Drug Allergies [NKDA] Allergy (Unknown, Verified 01/07/20 06:28) Height: 1.57 m Weight: 75.296 kg - VTE Risk Labs: VTE Related Lab Results Hgb 8.3 g/dL (12.2-16.2) L 01/08/20 06:23 Hct 25.2 % (37.0-47.0) L 01/08/20 06:23 BUN 2 mg/dl (7-17) L 01/08/20 06:23 Creatinine 0.40 mg/dl (0.52-1.04) L 01/08/20 06:23 Estimated Creat Clear 256 mL/min (50-200) 01/08/20 06:23 - Prophylaxis VTE Prophylaxis Ordered?: Yes Types of VTE Prophylaxis: IPCS Thigh High Location of Applied Device: Bilateral Lower Extremeties - VTE Diagnosis Confirmed Treatment or plan recommended: Continue Current Treatment
[2020-01-08 13:10] VITALS: BP 125/79; PULSE 75; RESP 18; TEMP 36.5
--- NOTE | 2020-01-09 13:07 | P.DS_ITS ---
General - General Admission date:: 01/07/20 Discharge date: 01/09/20 Hospital Course Hospital Course: Elective repeat CS at 39 wks Izuie-ew-ghuadqv anemia; asymptomatic Potassium level stable after supplemental potassium given IV No complaints; desires discharge home on POD #2 Tolerating regular diet, ambulating and voiding without difficulty Rhogam Administration: Not Indicated Objective Vital signs: Temp Pulse Resp BP Pulse Ox 97.7 F 75 18 125/79 99 01/08/20 13:10 01/08/20 13:10 01/08/20 13:10 01/08/20 13:10 01/08/20 08:50 Narrative: CONSTITUTIONAL: no acute distress HEENT: mucous membranes moist PULMONARY: breathing unlabored without audible wheezes CV: no tachycardia or visible JVD; normal LE peripheral pulses ABD: soft, ND; appropriately tender but no rebound/guarding : fundus firm at/below umbilicus SKIN: incision well approximated with no drainage, erythema or induration EXT: 1+ edema LEs NEURO: alert/oriented, no altered mental status PSYCH: appropriate mood and demeanor without anxiety/depression DS: Diagnosis - Discharge Diagnosis (1) Previous section Status: Acute (2) Anemia complicating Status: Acute Discharge Plan - Patient Discharge Instructions Additional Instructions: Make an appointment to see Dr. Hoff in 2 weeks No heavy lifting, no strenuous activity, nothing in the vagina for 6 weeks, no driving for 2 weeks or while taking prescription narcotics. Patient Instructions: Depression, Hemorrhage, DI for , DI for Pre-eclampsia, DI for Surgical Site Infection, DI for Postoperative Pain, [facility] Post Discharge Instructions, Preventing the Spread of Coronavirus Discharge Instructions - Follow up Plan Follow up with: Nereyda Hoff MD [Staff Physician] - Disposition: Home, Self-Long-Term Medications: Home Medications Medication Instructions Recorded Confirmed Type prenat.vits,rhonda,nzy-dwex-zduek 1 tab PO DAILY 07/18/19 01/07/20 History Sertraline HCl [Zoloft] 100 mg PO DAILY 01/07/20 01/07/20 History Ibuprofen [Motrin 400mg 800 mg PO Q6HP PRN #30 tab 01/09/20 Rx tablet] Oxycodone HCl [OxyIR 5mg tablet] 5 mg PO Q4HP PRN #30 tablet 01/09/20 Rx Prescriptions/Medication Reconciliation: New Ferrous Sulfate [Ferrous Sulfate 325mg Tablet] 325 mg PO BID tablet Oxycodone HCl [OxyIR 5mg tablet] 5 mg PO Q4HP PRN #30 tablet PRN Reason: Moderate Pain Ibuprofen [Motrin 400mg tablet] 800 mg PO Q6HP PRN #30 tab PRN Reason: Mild To Moderate Pain Continued prenat.vits,rhonda,vuv-uiut-cumih 1 tab PO DAILY Sertraline HCl [Zoloft] 100 mg PO DAILY - Problem Reconciliation Problems Reviewed?: Yes
== END 2020-01-09 13:30 | disposition home or self-care (01) | DRG 788 ==
PROVIDERS: Admitting Provider Obstetrics & Gynecology; Visit Provider Obstetrics & Gynecology
PROC: 10D00Z1 Extraction of Products of Conception, Low, Open Approach (ICD-10-PCS; CPT 59514; principal; 2020-01-07 07:30)
DX: O34.211 Maternal care for low transverse scar from previous cesarean delivery (principal); N85.8 Other specified noninflammatory disorders of uterus; Z3A.39 39 weeks gestation of pregnancy; Z37.0 Single live birth
CPT/HCPCS: 59514; 36415; 59025; 80048; 80053; 80305; 81001; 84132; 85014; 85018; J2405

== ENCOUNTER 2020-04-29 11:18 | Emergency (ER) | payer OTHER, SELFPAY ==
[2020-04-29 11:29] VITALS: BP 144/81; PULSE 84; RESP 19; TEMP 37; O2SAT 98; BMI 24.8
--- NOTE | 2020-04-29 11:39 | HMH.EDUTC ---
[facility] [place] Clinical Impression: Viral syndrome Disposition: Home, Self-Care Condition on Discharge: Good Instructions: DI for Viral Syndrome, Preventing the Spread of Coronavirus Discharge Instructions Additional Instructions: Drink plenty of fluids. Take tylenol for pain or fever. Take the medications as directed. Follow up with your regular doctor. GO TO THE ER FOR ANY WORSENING SYMPTOMS Prescriptions: Ondansetron [Zofran 4mg ODT] 4 mg PO Q8HP PRN #12 tab.rapdis PRN Reason: Nausea Transmission Status: Received by [facility] Azithromycin [Z-Pancho 250mg Tab*] 250 mg PO UD DOSE PK #6 tab Transmission Status: Received by [facility] Referrals: PCP,No [Primary Care Provider] - Forms: Work/School Release Time of Disposition: 11:50 Medical Decision Making - Medical Records Medical records reviewed: No: I reviewed the patient's medical records. - Filippo Inquiry Pt receiving controlled substance: No Vital Signs: 04/29/20 11:29 04/29/20 12:00 Temperature 98.6 F 98.6 F Temperature Source Oral Oral Pulse Rate 84 Pulse Rate [Radial] 84 Respiratory Rate 19 19 Blood Pressure 144/81 H Blood Pressure [Right Arm] 144/81 H Blood Pressure Mean [Right Arm] 102 Blood Pressure Source Automatic Cuff Blood Pressure Source [Right Arm] Automatic Cuff Blood Pressure Position Sitting Blood Pressure Position [Right Arm] Sitting 02 Sat by Pulse Oximetry 98 Oxygen Delivery Method Room Air Room Air - Lab Data Lab Results 04/29/20 11:21: Influenza Type A Ag Negative, Influenza Type B Ag Negative 04/29/20 11:23: Chlamy pneumoniae PCR Not detected, Adenovirus (PCR) Not detected, B. pertussis DNA (PCR) Not detected, Coronavirus OC43 (PCR) Not detected, Coronavirus HKU1 (PCR) Not detected, Coronavirus 229E (PCR) Not detected, SARS-CoV-2 (PCR) Not detected, Coronavirus NL63 (PCR) Not detected, Human Metapneumovir PCR Not detected, Influenza A (H1) PCR Not detected, Influ A (H1N1/09) PCR Not detected, Influenza A (H3) PCR Not detected, Influenza Type A (PCR) Not detected, Influenza Type B (PCR) Not detected, M. pneumoniae (PCR) Not detected, Parainfluenza 1 (PCR) Not detected, Parainfluenza 2 (PCR) Not detected, Parainfluenza 3 (PCR) Not detected, Parainfluenza 4 (PCR) Not detected, RSV (PCR) Not detected, Entero/Rhino (PCR) Detected A [facility] [place] HPI - General Stated complaint: covid exposure, nausea,vomiting,diarrhea Time Seen by Provider: 04/29/20 11:39 Mode of Arrival: Ambulatory Source of Information: Patient Limitations: No Limitations Description of Symptoms (Recalled from Triage Doc. by RN): body aches, nausea, diarrhea, vomiting since yesterday HEENT Symptoms (Recalled from RN notes): Yes Resp Symptoms (Recalled from RN notes): No Skin Symptoms (Recalled from RN notes): No MS Symptoms (Recalled from RN notes): No Functional Status (Recalled from RN notes): wnl - History of Present Illness Provider Complaint: She states that since yesterday she has had chilling, body aches, nausea, dry cough. - Related Data Home Medications Medication Instructions Recorded Confirmed prenat.vits,rhonda,gwy-hkjm-raomf 1 tab PO DAILY 07/18/19 01/07/20 Sertraline HCl [Zoloft] 100 mg PO DAILY 01/07/20 01/07/20 Previous Rx's Medication Instructions Recorded Ibuprofen [Motrin 400mg 800 mg PO Q6HP PRN #30 tab 01/09/20 tablet] Oxycodone HCl [OxyIR 5mg tablet] 5 mg PO Q4HP PRN #30 tab 01/09/20 Azithromycin [Z-Pancho 250mg Tab*] 250 mg PO UD DOSE PK #6 tab 04/29/20 Ondansetron [Zofran 4mg ODT] 4 mg PO Q8HP PRN #12 tab.rapdis 04/29/20 Allergies Allergy/AdvReac Type Severity Reaction Status Date / Time No Known Drug Allergies Allergy Unknown Verified 01/21/20 15:11 [NKDA] - Worker's Comp Is this a Worker's Comp case?: No [facility] History - Hepatitis A Screen Drug use history?: No High risk sexual behaviors?: No History of sexually transmitted infection?: No Andriy
[2020-04-29 11:54] LABS: UTC Influenza A Antigen Negative (Negative); UTC Influenza B Antigen Negative (Negative)
[2020-04-29 12:00] VITALS: BP 144/81; PULSE 84; RESP 19; TEMP 37; O2SAT 98
[2020-04-29 14:01] LABS: Adenovirus,PCR Not Detected (NotDetected); Bordetella Pertussis Not Detected (NotDetected); Chlamydophila Pneumoniae, PCR Not Detected (NotDetected); Coronavirus 19, PCR Not Detected (NotDetected); Coronavirus 229E Not Detected (NotDetected); Coronavirus NL63 Not Detected (NotDetected); Coronavirus OC43 Not Detected (NotDetected); Coronovirus HKU1,PCR Not Detected (NotDetected); Human Metapneumovirus Not Detected (NotDetected); Influenza A, PCR Not Detected (NotDetected); Influenza AH1, 2009 Not Detected (NotDetected); Influenza AH1, PCR Not Detected (NotDetected); Influenza AH3,PCR Not Detected (NotDetected); Influenza B, PCR Not Detected (NotDetected); Mycoplasma Pneumoniae, PCR Not Detected (NotDetected); Parainfluenza 1, PCR Not Detected (NotDetected); Parainfluenza 2, PCR Not Detected (NotDetected); Parainfluenza 3, PCR Not Detected (NotDetected); Parainfluenza 4, PCR Not Detected (NotDetected); Respiratory Syncytial Virus Not Detected (NotDetected)
[2020-04-29 15:52] LABS: Rhinovirus/Enterovirus Detected (NotDetected)
== END 2020-04-29 12:05 | disposition home or self-care (01) ==
PROVIDERS: Emergency Provider Nurse Practitioner Family
DX: Z20.828 Contact with and (suspected) exposure to other viral communicable diseases (principal); B34.9 Viral infection, unspecified; F17.210 Nicotine dependence, cigarettes, uncomplicated
CPT/HCPCS: 87581; 87633; 87798; 87804; 99201

== ENCOUNTER 2020-07-03 09:04 | Emergency (ER) | payer OTHER, SELFPAY ==
[2020-07-03 09:05] VITALS: BP 116/81; PULSE 95; RESP 20; TEMP 36.8; O2SAT 97; BMI 25.6
--- NOTE | 2020-07-03 09:43 | HMH.EDUTC ---
[facility] [place]ression: Exposure to COVID-19 virus Disposition: Home, Self-Care Condition on Discharge: Good Instructions: Preventing the Spread of Coronavirus Discharge Instructions Additional Instructions: You have been tested for COVID19. Please assume you are positive and act as if you are positive until test results are received and isolate yourself. I have sent medications to help your symptoms. Vitamin C, vitamin D and zinc might also help. Please return to [facility] if significantly worsens. Prescriptions: Ondansetron [Ondansetron Odt 8mg Tab] 8 mg PO TID PRN 10 Days #30 tab PRN Reason: Nausea Transmission Status: Pending to [facility] Pseudoephedrine HCl [Sudafed 12 Hour 120mg Tab] 1 tab PO BID 10 Days #20 tab Transmission Status: Pending to [facility] Referrals: PCP,No [Primary Care Provider] - Time of Disposition: 09:47 Medical Decision Making - Filippo Inquiry Pt receiving controlled substance: No Vital Signs: 07/03/20 09:05 Temperature 98.3 F Temperature Source Oral Pulse Rate [Right Brachial] 95 H Respiratory Rate 20 Blood Pressure [Right Arm] 116/81 Blood Pressure Mean [Right Arm] 92 Blood Pressure Source [Right Arm] Automatic Cuff Blood Pressure Position [Right Arm] Sitting 02 Sat by Pulse Oximetry 97 Oxygen Delivery Method Room Air - Lab Data Lab results reviewed: Yes: I reviewed the patient's lab results. Orders (Tests/Meds): ORDERS Category Date Time Status Covid-19 Nasal PCR Sendout [facility] Stat Lab 07/03/20 09:38 [place] [facility] [place] - General Stated complaint: covid exposure Time Seen by Provider: 07/03/20 09:43 Mode of Arrival: Ambulatory Source of Information: Patient Limitations: No Limitations Description of Symptoms (Recalled from Triage Doc. by RN): PATIENT C/O SORE THROAT, DIARRHEA, NAUSEA, CONGESTION, BODY ACHES, AND LOSS OF SMELL X 2 DAYS. REQUESTING COVID SWAB. EXPOSED AT WORK WITH PPE IN PLACE HEENT Symptoms (Recalled from RN notes): Yes Resp Symptoms (Recalled from RN notes): No Skin Symptoms (Recalled from RN notes): No MS Symptoms (Recalled from RN notes): No Functional Status (Recalled from RN notes): WNL - History of Present Illness Provider Complaint: Sore throat, nausea, bilateral ear pain, cough, congestion, body aches X 5-6 days. Much worse past 2 days. She does work on [employer] but always wears PPE. No outside exposure that she is aware of. No fever. Has lost sense of taste and smell since yesterday. Onset (ago): week(s) (1) Location: head, chest Exacerbating factors: none Associated symptoms: headaches, malaise, nausea/vomiting Treatments prior to arrival: none - Related Data Home Medications Medication Instructions Recorded Confirmed Venlafaxine HCl [Venlafaxine HCl 1 tab PO DAILY 07/03/20 07/03/20 ER] Previous Rx's Medication Instructions Recorded Ondansetron [Ondansetron Odt 8mg 8 mg PO TID PRN 10 Days #30 tab 07/03/20 Tab] Pseudoephedrine HCl [Sudafed 12 1 tab PO BID 10 Days #20 tab 07/03/20 Hour 120mg Tab] Allergies Allergy/AdvReac Type Severity Reaction Status Date / Time No Known Drug Allergies Allergy Unknown Verified 01/21/20 15:11 [NKDA] - Worker's Comp Is this a Worker's Comp case?: No [facility] History - Hepatitis A Screen Drug use history?: No High risk sexual behaviors?: No History of sexually transmitted infection?: No Currently employed?: No Childcare worker?: No Do you have indoor plumbing?: Yes Do you have electricity?: Yes Attestation statement:: This patient has been screened for Hepatitis A risk factors. I have reviewed the patient's past medical history: Yes Medical History: Denies:: Cancer, Diabetes Mellitus Type 1, Diabetes Mellitus Type 2, MRSA Other Medical History: Reports: Other Comment: HPV. ENDOMETRIOSIS. COLPO'S Laterality Cases: Bilateral: Tonsillectomy Other Surgeries: Yes: , Other Amputation: No Fracture
[2020-07-03 09:49] VITALS: BP 116/81; PULSE 95; RESP 20; TEMP 36.8; O2SAT 97
[2020-07-03 20:54] LABS: UTC Influenza A Antigen Negative (Negative); UTC Influenza B Antigen Negative (Negative)
[2020-07-03 20:55] LABS: UTC Strep Screen (Rapid) Negative (Negative)
== END 2020-07-03 09:51 | disposition home or self-care (01) ==
PROVIDERS: Emergency Provider Physician Assistant
DX: Z20.822 Contact with and (suspected) exposure to COVID-19 (principal); Z87.891 Personal history of nicotine dependence; F41.9 Anxiety disorder, unspecified; Z79.899 Other long term (current) drug therapy
CPT/HCPCS: 87804; 87880; 99202; G0463; U0003

== ENCOUNTER 2020-12-15 13:13 | Emergency (ER) | payer SELFPAY ==
[2020-12-15 13:15] VITALS: BP 111/64; PULSE 93; RESP 18; TEMP 36.6; O2SAT 96; BMI 27.4
[2020-12-15 13:46] VITALS: BP 111/64; PULSE 93; RESP 18; TEMP 36.6; O2SAT 96
--- NOTE | 2020-12-15 13:57 | HMH.EDUTC ---
[facility] [place] Disposition Clinical Impression: Burn from the sun, Photoallergic dermatitis Disposition: Home, Self-Care Condition on Discharge: Good Instructions: Sunburn, DI for Sunburn Additional Instructions: Avoid getting sun burnt. Don't start the oral steroids until tomorrow. Follow up with your regular doctor. GO TO THE ER FOR ANY WORSENING SYMPTOMS OR CONCERNS Prescriptions: methylPREDNISolone [Medrol] 4 mg PO DIRECTED 6 Days #21 tab.ds.pk Transmission Status: Received by [facility] Referrals: Provider,Referral, [Primary Care Provider] - Time of Disposition: 14:04 Medical Decision Making - Medical Records Medical records reviewed: No: I reviewed the patient's medical records. - Filippo Inquiry Pt receiving controlled substance: No Vital Signs: 12/15/20 13:15 12/15/20 13:46 Temperature 97.8 F 97.8 F Temperature Source Oral Pulse Rate 93 H Pulse Rate [Right Brachial] 93 H Respiratory Rate 18 18 Blood Pressure 111/64 Blood Pressure [Right Arm] 111/64 Blood Pressure Mean [Right Arm] 79 Blood Pressure Source [Right Arm] Automatic Cuff Blood Pressure Position [Right Arm] Sitting 02 Sat by Pulse Oximetry 96 Oxygen Delivery Method Room Air Orders (Tests/Meds): ED MEDICATIONS Discontinued Medications Generic Name Dose Route Start Last Admin Trade Name Philipq PRN Reason Stop Dose Admin Ketorolac Tromethamine 60 mg 12/15/20 13:43 12/15/20 13:45 Ketorolac 60mg/2ml Vial IM 12/15/20 13:44 60 mg ONCE ONE Administration Methylprednisolone Sodium Succinate 125 mg 12/15/20 13:43 12/15/20 13:45 Methylprednisolone Sod Succ 125mg Vial IM 12/15/20 13:44 125 mg ONCE ONE Administration [facility] [place] HPI - General Stated complaint: face swollen Time Seen by Provider: 12/15/20 13:30 Mode of Arrival: Ambulatory Source of Information: Patient Limitations: No Limitations Description of Symptoms (Recalled from Triage Doc. by RN): PATIENT C/O SWELLING OF FACE (AROUND EYES) THAT STARTED YESTERDAY AND HAS GOTTEN WORSE TODAY. STATES SHE DID GET SUNBURNED ON MONDAY AND USED LIDOCAINE SPRAY ON HER FACE. ALSO STATES HER CHILDREN RECENTLY HAD PINK EYE HEENT Symptoms (Recalled from RN notes): Yes Resp Symptoms (Recalled from RN notes): No Skin Symptoms (Recalled from RN notes): No MS Symptoms (Recalled from RN notes): No Functional Status (Recalled from RN notes): WNL - History of Present Illness Provider Complaint: She states that she got a sun burn 3 days ago. Then, yesterday she began to have swelling of her face around her eyes. She denies any additional swelling or rash, other than the sun burn. - Related Data Previous Rx's Medication Instructions Recorded methylPREDNISolone [Medrol] 4 mg PO DIRECTED 6 Days #21 12/15/20 tab.ds.pk Allergies Allergy/AdvReac Type Severity Reaction Status Date / Time No Known Drug Allergies Allergy Unknown Verified 01/21/20 15:11 [NKDA] - Worker's Comp Is this a Worker's Comp case?: No [facility] History - Hepatitis A Screen Drug use history?: No High risk sexual behaviors?: No History of sexually transmitted infection?: No Currently employed?: No Childcare worker?: No Do you have indoor plumbing?: Yes Do you have electricity?: Yes Attestation statement:: This patient has been screened for Hepatitis A risk factors. I have reviewed the patient's past medical history: Yes Medical History: Denies:: Cancer, Diabetes Mellitus Type 1, Diabetes Mellitus Type 2, MRSA Other Medical History: Reports: Other Comment: HPV. ENDOMETRIOSIS. COLPO'S Laterality Cases: Bilateral: Tonsillectomy Other Surgeries: Yes: , Other Amputation: No Fractures: No Comment: 2008- Tonsil-X. 2012- wisdom teeth. 2016- Primary - Social History Smoking Status: Former smoker Tobacco Type: cigarettes # Packs/Day (cigarettes): 1 Alcohol Intake: never Alcohol Intake Frequency:: holidays/special occasions on
== END 2020-12-15 14:08 | disposition home or self-care (01) ==
PROVIDERS: Emergency Provider Nurse Practitioner Family
DX: L55.9 Sunburn, unspecified (principal); L56.8 Other specified acute skin changes due to ultraviolet radiation; Z87.891 Personal history of nicotine dependence
CPT/HCPCS: 96372; 99202; G0463

== ENCOUNTER → 2021-06-08 08:12 | Outpatient (CLI) | payer OTHER, SELFPAY ==
[2021-06-08 08:48] LABS: Coronavirus 19, PCR Not Detected (NotDetected); Influenza A, PCR Not Detected (NotDetected); Influenza B, PCR Not Detected (NotDetected)
== END ==
PROVIDERS: Visit Provider Nurse Practitioner
DX: Z20.822 Contact with and (suspected) exposure to COVID-19 (principal)
CPT/HCPCS: C9803; U0003; U0005

== ENCOUNTER 2022-10-13 15:32 | Emergency (ER) | payer OTHER, SELFPAY ==
[2022-10-13 15:45] VITALS: BP 150/85; PULSE 97; RESP 18; TEMP 36.8; O2SAT 97; BMI 20.8
[2022-10-13 16:07] LABS: UTC Strep Screen (Rapid) Positive (Negative)
--- NOTE | 2022-10-13 16:37 | EXP.UTC ---
Discharge Plan Disposition Patient Disposition: Home, Self-Care Condition: Good Prescriptions Prescriptions: New amoxicillin [amoxicillin] 875 mg tablet 875 mg PO Q12H Qty: 20 0RF methylprednisolone 4 mg Tablets,Dose Pack 4 mg PO DIRECTED Qty: 21 0RF ondansetron 4 mg Tablet,Disintegrating 4 mg PO Q8H PRN (Reason: Nausea) Qty: 12 0RF Referrals Follow up/Referrals: Provider,Referral, MD [Primary Care Provider] - See instructions Activity Restrictions/Add. Instructions Additional Instructions/Restrictions: Drink plenty of fluids. Take tylenol or ibuprofen for pain or fever. Take the medications as directed. Follow up with your regular doctor. GO TO THE ER FOR ANY WORSENING SYMPTOMS Throw your tooth brush away and get a new one. Don't start the oral steroids until tomorrow, since you had the shot here today. Clinical Impressions Clinical Impression: Strep throat Instructions Patient Instructions: DI for Strep Throat, Strep Throat Discharge ED Provider: Negro Olivera [facility] General Stated complaint: fernie, ear pain, sore throat Mode of Arrival: Ambulatory Source of Information: Patient Limitations: No Limitations Time Seen by Provider: 10/13/22 16:30 Description of Symptoms (Recalled from Triage Doc. by RN): sore throat, left ear pain, and left jaw pain HEENT Symptoms (Recalled from RN notes): Yes Resp Symptoms (Recalled from RN notes): No Skin Symptoms (Recalled from RN notes): No MS Symptoms (Recalled from RN notes): No Functional Status (Recalled from RN notes): n/a History of Present Illness Provider Complaint: She c/o sore throat for the past 2 days. Related Data Previous Rx's Medication Instructions Recorded amoxicillin 875 mg tablet 875 mg PO Q12H #20 tabs 10/13/22 methylprednisolone 4 mg tablets in 4 mg PO DIRECTED #21 tabs 10/13/22 a dose pack ondansetron 4 mg disintegrating 4 mg PO Q8H PRN Nausea #12 tabs 10/13/22 tablet Allergies Allergy/AdvReac Type Severity Reaction Status Date / Time No Known Drug Allergies Allergy Unknown Verified 10/13/22 16:00 [NKDA] Worker's Comp Is this a Worker's Comp case?: No [facility] Disclaimer: The information contained in this section may have been updated after the patient was seen, as this information can be updated by other users. Social History Smoking Status: Former smoker second hand exposure: No alcohol intake: never substance use type: denies use current occupational status: other Travel in the last 8 weeks: None ROS Obtained: Yes All systems reviewed & no additional complaints except as documented Constitutional Constitutional: Reports chills and Reports fever(s) Eyes Eyes: Denies eye discharge ENT Ears, Nose, Mouth, and Throat: Reports as per HPI Cardiovascular Cardiovascular: Denies chest pain Respiratory Respiratory: Denies chest congestion and Reports cough Gastrointestinal Gastrointestingal: Reports nausea; Denies abdominal pain, constipation, cramping, diarrhea or vomiting Musculoskeletal Musculoskeletal: Denies arthralgias Integumentary/Breasts Skin/Breast: Denies rash Neurologic Neurologic: Denies paresthesias Physical Exam General General appearance: alert and in no apparent distress Head Head exam: atraumatic, normocephalic and normal inspection Eye Eye exam: Present normal appearance, PERRL and EOMI ENT ENT exam: Present mucous membranes moist and normal external ear exam Expanded ENT Exam TM/Canal exam: Bilateral TM: erythema and bulging Nose exam: Absent sinus tenderness Mouth exam: Present normal external inspection; Absent drooling Teeth exam: Present normal inspection Throat exam: Present tonsillar erythema, tonsillomegaly and tonsillar exudate Neck Neck exam: Present normal inspection, full ROM and trachea midline; Absent tenderness, meningismus or lymphadenopathy Chest Chest inspection: Pre
[2022-10-13 17:30] VITALS: BP 150/85; PULSE 97; RESP 18; TEMP 36.8; O2SAT 97
== END 2022-10-13 17:30 | disposition home or self-care (01) ==
PROVIDERS: Emergency Provider Nurse Practitioner Family
DX: J02.0 Streptococcal pharyngitis (principal); H92.02 Otalgia, left ear; R68.84 Jaw pain; Z87.891 Personal history of nicotine dependence
CPT/HCPCS: 87880; 96372; 99212; 99214; G0463; J0696

== ENCOUNTER → 2022-11-03 23:17 | Outpatient (CLI) | payer OTHER, SELFPAY ==
[2022-11-03 18:16] LABS: Basophils % 0.4 % (0.1-2.0); Eosinophils # 0.1 K/mm3 (0.0-0.4); Eosinophils % 0.9 % (0.1-12.0); Hematocrit 38.1 % (37.0-47.0); Hemoglobin 11.8 g/dL (12.2-16.2); Lymphocytes # 1.5 K/mm3 (0.7-4.5); Lymphocytes % 23.7 % (10-50); Mean Corpuscular Hemoglobin 34.8 pg (27.0-31.2); Mean Corpuscular Volume 112.4 fl (81-99); Mean Platelet Volume 8.4 fl (7.4-10.4); Monocytes # 0.3 K/mm3 (0.1-1.0); Neutrophils # 4.4 K/mm3 (1.8-7.8); Neutrophils % 70.1 % (37.0-80.0); Platelet Count 405 K/mm3 (142-424); Red Blood Count 3.39 M/mm3 (4.20-5.40); Red Cell Distribution Width 13.8 % (11.5-17.5); White Blood Count 6.2 K/mm3 (4.8-10.8)
[2022-11-03 18:49] LABS: Carbon Dioxide 24 mmol/L (22.0-30.0); Chloride 101 mmol/L (98-107); Sodium 139 mmol/L (136-145)
[2022-11-03 18:50] LABS: Alanine Aminotransferase 17 U/L (12-78); Albumin/Globulin Ratio 1.4 (1.1-1.8); Alkaline Phosphatase 106 U/L (38-126); Aspartate Amino Transferase 32 U/L (14-36); Bilirubin,Total 0.3 mg/dl (0.2-1.3); Blood Urea Nitrogen 11 mg/dl (7-17); Calcium 9.3 mg/dl (8.4-10.2); Cholesterol 221 mg/dl (140-200); Estimated Glomerular Filt Rate 147 ml/min (>60); GFR (African American) 178 ML/MIN (>60); Globulin 2.8 g/dL (1.3-3.2); Glucose 90 mg/dl (74-100); Total Protein,Serum 6.8 g/dl (6.3-8.2); Triglycerides 163 mg/dl (30-150); VLDL Cholesterol 33 mg/dL (0-40)
[2022-11-03 19:01] LABS: Direct LDL Cholesterol 54.23 mg/dL (100-129)
[2022-11-03 19:07] LABS: T4 (Thyroxine) 5.7 ug/dl (5.53-11.0)
[2022-11-03 19:08] LABS: 25-OH Vitamin D, Total 30.9 ng/mL (30-100)
[2022-11-03 19:20] LABS: Thyroid Stimulating Hormone 1.43 uIU/mL (0.465-4.68)
[2022-11-03 19:40] LABS: Vitamin B12 401 pg/mL (239-931)
[2022-11-03 19:45] LABS: Chol/HDL Ratio 1.1 (1-3.5); HDL Cholesterol 193 mg/dl (40-60)
[2022-11-04 10:56] LABS: Vitamin B12 404 pg/mL (239-931)
[2022-11-04 11:17] LABS: Folate 1.75 ng/mL
== END ==
PROVIDERS: PCP Nurse Practitioner Family; Visit Provider Nurse Practitioner Family
DX: L65.9 Nonscarring hair loss, unspecified (principal); D64.9 Anemia, unspecified
CPT/HCPCS: 80053; 80061; 82306; 82607; 82746; 84436; 84443; 85025

== ENCOUNTER 2023-03-09 21:03 | Emergency (ER) | payer OTHER, SELFPAY ==
[2023-03-09 21:11] VITALS: BP 120/94; PULSE 94; RESP 18; TEMP 36.5; O2SAT 99; BMI 21.0
[2023-03-09 21:41] LABS: Basophils # 0.1 K/mm3 (0-0.2); Basophils % 1.1 % (0.1-2.0); Eosinophils # 0.1 K/mm3 (0.0-0.4); Eosinophils % 1.5 % (0.1-12.0); Hematocrit 40.6 % (37.0-47.0); Hemoglobin 12.9 g/dL (12.2-16.2); Lymphocytes # 1.5 K/mm3 (0.7-4.5); Lymphocytes % 35.4 % (10-50); Mean Corpuscular HGB Conc 31.7 g/dL (31.8-35.4); Mean Corpuscular Hemoglobin 37.1 pg (27.0-31.2); Mean Corpuscular Volume 117.1 fl (81-99); Mean Platelet Volume 7.7 fl (7.4-10.4); Monocytes # 0.2 K/mm3 (0.1-1.0); Monocytes % 3.7 % (1.7-9.3); Neutrophils # 2.5 K/mm3 (1.8-7.8); Neutrophils % 58.3 % (37.0-80.0); Platelet Count 510 K/mm3 (142-424); Red Blood Count 3.47 M/mm3 (4.20-5.40); Red Cell Distribution Width 16.2 % (11.5-17.5); White Blood Count 4.3 K/mm3 (4.8-10.8)
[2023-03-09 21:46] LABS: Chloride 108 mmol/L (98-107); Potassium 3.9 mmoL/L (3.5-5.1); Sodium 145 mmol/L (136-145)
[2023-03-09 21:49] LABS: Alanine Aminotransferase 23 U/L (12-78); Albumin Level 4.2 g/dl (3.5-5.0); Albumin/Globulin Ratio 1.4 (1.1-1.8); Alkaline Phosphatase 80 U/L (38-126); Anion Gap 11.9 mEq/L (5-15); Aspartate Amino Transferase 76 U/L (14-36); Bilirubin,Total 0.3 mg/dl (0.2-1.3); Blood Urea Nitrogen 8 mg/dl (7-17); Carbon Dioxide 29 mmol/L (22.0-30.0); Creatinine Clearance Estimated 114 mL/min (50-200); Estimated Glomerular Filt Rate 118 ml/min (>60); GFR (African American) 143 ML/MIN (>60); Globulin 3.1 g/dL (1.3-3.2); Total Protein,Serum 7.3 g/dl (6.3-8.2)
[2023-03-09 21:50] LABS: Calcium 8.4 mg/dl (8.4-10.2); Glucose 112 mg/dl (74-100); Lactic Acid 1.8 mmol/L (0.7-2.1)
[2023-03-09 23:52] VITALS: BP 125/97; PULSE 78; RESP 16; O2SAT 99
--- NOTE | 2023-03-09 23:53 | HMH.EDGENADL ---
Discharge Plan Disposition Patient Disposition: Home, Self-Care Prescriptions Prescriptions: New promethazine 25 mg tablet 25 mg PO Q6H PRN (Reason: nausea and vomiting) Qty: 20 0RF No Action dextroamphetamine-amphetamine [Adderall XR] 10 mg capsule,extended release 24hr 10 mg PO DAILY Qty: 30 0RF Referrals Follow up/Referrals: Mookie Olivia APRN [Primary Care Provider] - See instructions Activity Restrictions/Add. Instructions Additional Instructions/Restrictions: Call your family doctor to establish care for this visit to the emergency department and schedule follow-up within 48 hours to ensure improvement. If you have any worsening of your condition or any other concerning signs or symptoms, return to the emergency department or your primary care doctor for further evaluation. Take Phenergan every 6 hours as needed. Talk to your doctor about cyclic vomiting syndrome and chronic management. If this does not seem to help, talk to him about acid reduction medications. Clinical Impressions Clinical Impression: Cyclic vomiting syndrome Instructions Patient Instructions: DI for Diarrhea and Traveler's Diarrhea -- Adult, DI for Diarrhea and Traveler's Diarrhea -- Child, DI for Nausea -- Adult, DI for Nausea -- Child Discharge ED Provider: Joaquin Mullen General Adult HPI General Chief complaint: Nausea/Vomiting/Diarrhea Stated complaint: vomiting for 1WK Time Seen by Provider: 03/09/23 22:56 Mode of Arrival: Ambulatory Source of Information: Patient Limitations: No Limitations Description of Symptoms (Recalled from ER Triage Doc. by RN): patient ambulatory to [facility]. Patient with n/v/d x2 weeks. denies fevers. not around anyone that is been sick. Patient states that she cannot keep water down. She believes that she is severely dehydrated. History of Present Illness HPI narrative: Is a 28-year-old female with history of nicotine and marijuana dependence using vapes as well as edibles presenting with vomiting. Patient states that she goes through periods of vomiting for approximately 1 to 2 weeks a couple times a year. She also has IBS. Has never seen any specialist to delineate why she is having the symptoms. States that she has never been told she had malabsorption disorder, cyclic vomiting syndrome, or otherwise. No blood or bile in her vomit, no blood in her stool. No fevers or chills, dysuria hematuria, or any other concerns. Tolerating minimal p.o. intake Related Data Previous Rx's Medication Instructions Recorded dextroamphetamine-amphetamine ER 10 mg PO DAILY #30 caps 11/03/22 10 mg 24hr capsule,extend release (Adderall XR) promethazine 25 mg tablet 25 mg PO Q6H PRN nausea and 03/10/23 vomiting #20 tabs Allergies Allergy/AdvReac Type Severity Reaction Status Date / Time No Known Drug Allergies Allergy Unknown Verified 11/03/22 13:11 [NKDA] [facility] Disclaimer: The information contained in this section may have been updated after the patient was seen, as this information can be updated by other users. Medical History (Updated 03/10/23 @ 01:48 by Joaquin Mullen MD) Ankle sprain Burn from the sun Chronic nausea Exposure to COVID-19 virus Otitis externa Photoallergic dermatitis URI (upper respiratory infection) Viral syndrome Family History (Updated 11/03/22 @ 13:16 by Linda Tran MA) Family/Other Cancer Social History (Updated 11/03/22 @ 13:16 by Linda Tran MA) Smoking Status: Current every day smoker tobacco type: cigarettes packs per day: 1 and e-cigarettes second hand exposure: No alcohol intake: never substance use type: denies use current occupational status: other Travel in the last 8 weeks: None ROS Obtained: Yes All systems reviewed & no additional complaints except as documented Physical Exam General General appearance: alert, in no apparent distress and other ( ) Head Head exam: atraumatic and normocephalic Eye Eye e
[2023-03-09 23:55] LABS: HCG,Quantitative < 2 mIU/ml (0-5.42)
--- NOTE | 2023-03-10 00:10 | PC.NURSE ---
Rounded on patient; warm blanket applied. Call elise within reach of patient
[2023-03-10 00:18] LABS: Lipase 101 U/L (23-300)
--- NOTE | 2023-03-10 01:06 | PC.NURSE ---
Handed off report to scene shifter
[2023-03-10 01:51] VITALS: BP 133/97; PULSE 75; RESP 20; TEMP 36.7; O2SAT 98
== END 2023-03-10 01:52 | disposition home or self-care (01) ==
PROVIDERS: Emergency Medicine; Emergency Provider Emergency Medicine; PCP Nurse Practitioner Family
DX: R11.2 Nausea with vomiting, unspecified (principal); F12.20 Cannabis dependence, uncomplicated; F17.210 Nicotine dependence, cigarettes, uncomplicated
CPT/HCPCS: 80053; 83605; 83690; 84702; 85025; 96361; 96374; 96375; 99285

== ENCOUNTER 2023-05-21 14:05 | Emergency (ER) | payer OTHER, SELFPAY ==
[2023-05-21 14:05] VITALS: BP 106/72; PULSE 108; RESP 17; TEMP 36.8; O2SAT 100; BMI 19.0
--- NOTE | 2023-05-21 14:07 | PC.NURSE ---
called rad to power share images to [place]
--- NOTE | 2023-05-21 14:08 | ECG_ITS ---
APPROVED REPORT Exam: Resting ECG HR:93 bpm ECG Measurements Heart Rate 93 AXES NC 127 P 147 QRSd 84 QRS 129 QT 368 T 117 QTc 418 Conclusion SINUS RHYTHM WITH OCCASIONAL VENTRICULAR PREMATURE COMPLEXES ARM LEADS REVERSED [INVERTED P AND QRS IN I] BORDERLINE ECG UNCONFIRMED REPORT Electronically signed by : Dell Spivey MD 05/22/2023 17:38:58
--- NOTE | 2023-05-21 14:25 | PC.NURSE ---
Dr. Mitchell at [facility] for jazmine
[2023-05-21 14:30] VITALS: BP 123/92; PULSE 92; RESP 17; O2SAT 98
--- NOTE | 2023-05-21 14:30 | XR_ITS ---
FINAL REPORT CLINICAL HISTORY: syncope vs seizure COMPARISON: None FINDINGS: A single portable view of the chest was obtained. The heart size and pulmonary vascularity are within normal limits. The mediastinum is within normal limits. No acute pulmonary abnormality is identified. The bony thorax is intact. IMPRESSION: No active cardiopulmonary disease. Reviewed, Interpreted and Dictated by Alex Campos III, MD Transcribed by Carley Fontaine Authenticated and . [facility]
--- NOTE | 2023-05-21 14:30 | CT_ITS ---
PROCEDURE INFORMATION: Exam: CT Head Without Contrast Exam date and time: 05/21/2023 2:54 PM Age: 28 years old Clinical indication: Other: Seizure TECHNIQUE: Imaging protocol: Computed tomography of the head without contrast. Radiation optimization: All CT scans at this facility use at least one of these dose optimization techniques: automated exposure control; mA and/or kV adjustment per patient size (includes targeted exams where dose is matched to clinical indication); or iterative reconstruction. REPORTING DATA: Count of CT and Cardiac NM exams in prior 12 months: This patient has received 0 known CTs and 0 known cardiac nuclear medicine studies in the 12 months prior to the current study. COMPARISON: No relevant prior studies available. FINDINGS: Brain: Normal. No hemorrhage. Unremarkable white matter. No mass effect. Cerebral ventricles: No ventriculomegaly. Paranasal sinuses: Severe bilateral maxillary sinus mucosal thickening. Moderate bilateral ethmoid air cell mucosal thickness. Moderate right frontal sinus mucosal thickening. Mastoid air cells: Visualized mastoid air cells are well aerated. Bones/joints: Unremarkable. No acute fracture. Soft tissues: Unremarkable. IMPRESSION: No acute intracranial abnormality. Severe bilateral maxillary sinus mucosal thickening. Moderate bilateral ethmoid air cell mucosal thickening. Moderate right frontal sinus mucosal thickening.
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
--- NOTE | 2023-05-21 14:43 | PC.NURSE ---
pt ambulatory to bathroom and urine collected. Pt provided with another warm blanket. Call light within reach and call light within reach.
[2023-05-21 14:44] LABS: Chloride 97 mmol/L (98-107); Sodium 135 mmol/L (136-145)
[2023-05-21 14:46] LABS: Basophils % 0.3 % (0.1-2.0); Eosinophils # 0.1 K/mm3 (0.0-0.4); Eosinophils % 1.1 % (0.1-12.0); HCG Qualitative, Serum Negative (Negative); Hematocrit 37.7 % (37.0-47.0); Hemoglobin 12.4 g/dL (12.2-16.2); Lymphocytes # 1.2 K/mm3 (0.7-4.5); Lymphocytes % 16.7 % (10-50); Mean Corpuscular HGB Conc 32.9 g/dL (31.8-35.4); Mean Corpuscular Volume 122.4 fl (81-99); Mean Platelet Volume 8.3 fl (7.4-10.4); Monocytes # 0.3 K/mm3 (0.1-1.0); Monocytes % 3.9 % (1.7-9.3); Neutrophils # 5.4 K/mm3 (1.8-7.8); Platelet Count 272 K/mm3 (142-424); Red Blood Count 3.08 M/mm3 (4.20-5.40); Red Cell Distribution Width 16.2 % (11.5-17.5); White Blood Count 6.9 K/mm3 (4.8-10.8)
[2023-05-21 14:46] LABS: Microscopic, Urine URINE MICROSCOPIC (MICROSCOPIC)
[2023-05-21 14:47] LABS: Alanine Aminotransferase 33 U/L (12-78); Alkaline Phosphatase 142 U/L (38-126); Aspartate Amino Transferase 181 U/L (14-36); Bilirubin,Total 0.9 mg/dl (0.2-1.3); Blood Urea Nitrogen 9 mg/dl (7-17); Estimated Glomerular Filt Rate 118 ml/min (>60); GFR (African American) 143 ML/MIN (>60)
[2023-05-21 14:48] LABS: Albumin Level 4.3 g/dl (3.5-5.0); Albumin/Globulin Ratio 1.4 (1.1-1.8); Anion Gap 12.8 mEq/L (5-15); Calcium 8.8 mg/dl (8.4-10.2); Carbon Dioxide 28 mmol/L (22.0-30.0); Globulin 3.1 g/dL (1.3-3.2); Glucose 109 mg/dl (74-100); Magnesium 1.2 mg/dl (1.6-2.3); Total Protein,Serum 7.4 g/dl (6.3-8.2)
[2023-05-21 14:50] LABS: Appearance,Urine CLEAR (Clear); Blood, Urine 3+ (Negative); Color,Urine YELLOW (Yellow); Glucose,Urine (UA) TRACE (Negative); Ketones,Urine TRACE (Negative); Leukocyte Esterase,Urine Negative (Negative); Nitrate,Urine POSITIVE (Negative); PH,Urine 5.5 (5.0-8.5); Protein,Urine 2+ (Negative); Specific Gravity, Urine >= 1.030 (1.005-1.030)
--- NOTE | 2023-05-21 14:50 | PC.NURSE ---
PT TO CT
[2023-05-21 14:51] LABS: Mean Corpuscular Hemoglobin 40.3 pg (27.0-31.2); Potassium 2.8 mmoL/L (3.5-5.1)
[2023-05-21 14:54] LABS: Bilirubin,Urine 2+ (Negative)
--- NOTE | 2023-05-21 14:54 | PC.NURSE ---
1450 CRITICAL K+ 2.8 RECEIVED FROM [facility] IN LAB. PT NAME AND R/V 1453 DR WILSON NOTIFIED. VERBAL ORDERS RECEIVED, POTASSIUM 40 MEQ PO AT THIS TIME. R/V
--- NOTE | 2023-05-21 15:01 | PC.NURSE ---
PT RETURNED FROM CT
[2023-05-21 15:11] LABS: Bacteria,Urine 2+ /lpf; Mucus,Urine 2+ /lpf; Squamous Epithelial Cell,Urine Occasional #/hpf (0-5); WBC,Urine Occasional #/hpf (0-3)
[2023-05-21 15:12] LABS: Hyaline Casts,Urine Occasional #/lpf (0)
[2023-05-21 15:15] VITALS: BP 118/77; PULSE 92; RESP 20; O2SAT 99
[2023-05-21 15:25] LABS: Thyroid Stimulating Hormone 2.27 uIU/mL (0.465-4.68)
[2023-05-21 15:30] VITALS: BP 124/88; PULSE 86; RESP 16; O2SAT 98
[2023-05-21 16:00] VITALS: BP 122/73; PULSE 91; RESP 15; O2SAT 97
--- NOTE | 2023-05-21 16:49 | PC.NURSE ---
I s/w Dr. Rodriguez, he will admit pt in as we are still awaiting bed assignment to . job training supervisor notified of admission.
[2023-05-21 17:08] VITALS: BP 115/85; PULSE 90; RESP 20; TEMP 36.7; O2SAT 98
== END 2023-05-21 17:09 | disposition home or self-care (01) ==
PROVIDERS: Emergency Provider Emergency Medicine; PCP Nurse Practitioner Family
DX: R56.9 Unspecified convulsions (principal); E87.6 Hypokalemia; E83.42 Hypomagnesemia; F17.210 Nicotine dependence, cigarettes, uncomplicated; N12 Tubulo-interstitial nephritis, not specified as acute or chronic
CPT/HCPCS: 70450; 71045; 80053; 81001; 83735; 84443; 84703; 85025; 87086; 93005; 96365; 99285; J3475

== ENCOUNTER 2023-05-26 17:23 | Emergency (ER) | payer OTHER, SELFPAY ==
[2023-05-26 18:20] VITALS: BP 145/90; PULSE 81; RESP 18; TEMP 37.1; O2SAT 98; BMI 18.6
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
[2023-05-26 18:46] LABS: UTC Influenza A Antigen Negative (Negative); UTC Influenza B Antigen Negative (Negative)
[2023-05-26 19:12] VITALS: BP 145/90; PULSE 81; RESP 18; TEMP 37.1; O2SAT 98
== END 2023-05-26 19:16 | disposition home or self-care (01) ==
PROVIDERS: Emergency Provider Nurse Practitioner; PCP Nurse Practitioner Family
DX: R05.9 Cough, unspecified (principal); R09.81 Nasal congestion; H92.03 Otalgia, bilateral; R11.0 Nausea; F17.210 Nicotine dependence, cigarettes, uncomplicated
CPT/HCPCS: 87635; 87804; 99212; 99214; G0463

== ENCOUNTER 2023-07-06 20:46 | Emergency (ER) | payer OTHER, SELFPAY ==
[2023-07-06 20:57] VITALS: BP 158/118; PULSE 110; RESP 16; TEMP 36.5; O2SAT 100; BMI 19.0
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
[2023-07-06 21:06] VITALS: BP 160/100; PULSE 105; RESP 16; TEMP 36.5
== END 2023-07-06 21:08 ==
PROVIDERS: Emergency Provider Emergency Medicine; PCP Nurse Practitioner Family
DX: Z04.1 Encounter for examination and observation following transport accident (principal); F17.210 Nicotine dependence, cigarettes, uncomplicated; V48.0XXA Car driver injured in noncollision transport accident in nontraffic accident, initial encounter
CPT/HCPCS: 99281

== ENCOUNTER 2023-07-09 20:59 | Emergency (ER) | payer OTHER, SELFPAY ==
[2023-07-09] VITALS (25 sets, daily range): BP systolic 108–158; BP diastolic 11–123; PULSE 68–140; RESP 16–37; TEMP 37.6; O2SAT 97–100; BMI 17.8; BMI 17.7
--- NOTE | 2023-07-09 20:43 | CT_ITS ---
PROCEDURE INFORMATION: Exam: CT Cervical Spine Without Contrast Exam date and time: 07/09/2023 9:08 PM Age: 28 years old Clinical indication: Injury or trauma; Fall; Sprain or strain, cervical ligaments; Additional info: Seizure like activity, fall, intubated TECHNIQUE: Imaging protocol: Computed tomography of the cervical spine without contrast. Radiation optimization: All CT scans at this facility use at least one of these dose optimization techniques: automated exposure control; mA and/or kV adjustment per patient size (includes targeted exams where dose is matched to clinical indication); or iterative reconstruction. COMPARISON: CT HEAD/BRAIN WO CON 07/09/2023 9:06 PM FINDINGS: Tubes, catheters and devices: Endotracheal and enteric tubes. Bones/joints: Cervical vertebrae normal in height. Mild rightward curvature.Maintained craniocervical junction. No acute fracture. No severe neural foraminal narrowing or spinal canal stenosis. Pharynx: Fluid within the posterior pharynx. Lungs: Lung apices are normal. Soft tissues: Unremarkable. IMPRESSION: No acute osseous findings.
--- NOTE | 2023-07-09 20:43 | XR_ITS ---
PROCEDURE INFORMATION: Exam: XR Chest Exam date and time: 07/09/2023 8:47 PM Age: 28 years old Clinical indication: Device placement; Ett placement (vent status); Additional info: Intubated, seizure like activity TECHNIQUE: Imaging protocol: Radiologic exam of the chest. Views: 1 view. COMPARISON: CR XR CHEST PORTABLE 05/21/2023 2:55 PM FINDINGS: Tubes, catheters and devices: Endotracheal tube measures 5.8 cm superior eva. Non weighted enteric tube overlies expected course of the esophagus passes subdiaphragmatically with side port and distal tip projecting over the stomach. Lungs: The lungs are adequately inflated. No focal consolidation. Pleural spaces: No pneumothorax or pleural effusion. Heart/Mediastinum: The cardiomediastinal silhouette has normal size and contour. Bones/joints: No displaced fracture. Intraperitoneal space: The visualized abdomen is unremarkable. IMPRESSION: 1. No acute cardiopulmonary abnormality. 2. Endotracheal tube distal tip 5.8 cm superior eva. 3. Other findings as above.
--- NOTE | 2023-07-09 20:43 | CT_ITS ---
PROCEDURE INFORMATION: Exam: CT Head Without Contrast Exam date and time: 07/09/2023 9:06 PM Age: 28 years old Clinical indication: Other: Seizure; Additional info: Seizure like activity, intubated TECHNIQUE: Imaging protocol: Computed tomography of the head without contrast. Radiation optimization: All CT scans at this facility use at least one of these dose optimization techniques: automated exposure control; mA and/or kV adjustment per patient size (includes targeted exams where dose is matched to clinical indication); or iterative reconstruction. COMPARISON: CT HEAD/BRAIN WO CON 05/21/2023 2:54 PM FINDINGS: Tubes, catheters and devices: Partially visualized endotracheal and enteric tubes. Brain: Normal. No hemorrhage. Unremarkable white matter. No mass effect. Cerebral ventricles: No ventriculomegaly. Paranasal sinuses: Mild left maxillary sinus mucosal thickening. Mastoid air cells: Visualized mastoid air cells are well aerated. Pharynx: Fluid within the posterior pharynx. Bones/joints: Unremarkable. No acute fracture. Soft tissues: Large left parietal scalp hematoma. IMPRESSION: Large left parietal scalp hematoma. No calvarial fracture or acute intracranial findings.
[2023-07-09] MEDS: propofoL 100 ML 8.98000000000000043 MG IV (20:44)
--- NOTE | 2023-07-09 20:45 | ED_ITS ---
Discharge Plan Disposition Patient Disposition: Xfer Short-Term Hosp Chief Complaint: Seizure Prescriptions Prescriptions: No Action Vraylar 1.5 mg capsule 1.5 mg PO DAILY Qty: 30 2RF cetirizine [Zyrtec] 10 mg tablet 10 mg PO DAILY Qty: 30 2RF lisinopril 10 mg tablet 10 mg PO DAILY Qty: 30 2RF fluticasone propionate [Flonase Allergy Relief] 50 mcg/actuation spray,suspe nsion 1 - 2 spray intranasal DAILY Qty: 16 0RF Rx Instructions: administer into each nostril daily ondansetron 4 mg tablet,disintegrating 4 mg PO Q8H PRN (Reason: nausea and vomiting) Qty: 10 0RF Clinical Impressions Clinical Impression: Status epilepticus, Hypokalemia, Encephalopathy Instructions Patient Instructions: DI for Seizure Disorder -- Adult, DI for Seizure (Not Epilepsy/Seizure Disorder), DI for Seizure Disorder -- Child Discharge ED Provider: Carl Mitchell General Adult HPI General Chief complaint: Seizure Stated complaint: seizures Time Seen by Provider: 07/09/23 20:30 History of Present Illness HPI narrative: Patient is a 28-year-old female with past medical history of substance abuse who presents emergency department for evaluation of seizure-like activity. Patient was at work when she was found on the ground with seizure-like activity tonic- clonic movements lasting approximately 2 minutes in duration. Patient had a short phase where she was largely not interactive with her environment with nonsensical movement and subsequently had another episode lasting 2 more minutes for which 5 mg of midazolam was administered IV. Patient has been not int eractive with her environment moving extremities nonsensically prior to arrival. No other history is able to be obtained at this time. Interval history: After initial resuscitation cousin arrived, patient is chronically malnourished and is trying to wean herself off of alcohol, unknown daily ingestion. Related Data Previous Rx's Medication Instructions Recorded fluticasone propionate 50 1 - 2 spray intranasal DAILY #16 05/26/23 mcg/actuation nasal grams spray,suspension (Flonase Allergy Relief) ondansetron 4 mg disintegrating 4 mg PO Q8H PRN nausea and 05/26/23 tablet vomiting #10 tabs cariprazine 1.5 mg capsule 1.5 mg PO DAILY #30 caps 06/08/23 (Vraylar) cetirizine 10 mg tablet (Zyrtec) 10 mg PO DAILY #30 tabs 06/08/23 lisinopril 10 mg tablet 10 mg PO DAILY #30 tabs 06/08/23 Allergies Allergy/AdvReac Type Severity Reaction Status Date / Time No Known Drug Allergies Allergy Unknown Verified 06/08/23 14:44 [NKDA] [facility] Disclaimer: The information contained in this section may have been updated after the patient was seen, as this information can be updated by other users. Medical History (Updated 07/09/23 @ 22:08 by Carl Mitchell MD) Ankle sprain Burn from the sun Chronic nausea Exposure to COVID-19 virus Otitis externa Photoallergic dermatitis URI (upper respiratory infection) Viral syndrome Family History (Updated 11/03/22 @ 13:16 by Linda Tran MA) Family/Other Cancer Social History (Updated 11/03/22 @ 13:16 by Linda Tran MA) Smoking Status: Unknown if ever smoked second hand exposure: No alcohol intake: never substance use type: denies use current occupational status: other Travel in the last 8 weeks: None ROS Obtained: Yes Systems reviewed as appropriate & no additional complaints except as documented Physical Exam General General appearance: other (Waxing and waning levels of consciousness, does not follow directions, spontaneously moving all extremities) Head Head exam: other (Hematoma posterior calvarium) Eye Eye exam: Present PERRL (Mydriatic) Respiratory Respiratory exam: Present normal lung sounds bilaterally and other (Tachypnea) Cardiovascular Cardiovascular exam: Present regular rate and tachycardia Abdominal Exam Abdominal exam: Present soft; Absent tenderness Neurological Exam Neurological exam: Present other (Waxing and waning levels of consciousness, spontaneously moving all extremities) Medical Decision Making Filippo Inquiry Pt receiving controlled substance: No Vital Signs: 07/09/23 20:43 07/09/23 20:57 07/09/23 20:59 Temperature 99.6 F Temperature Source Rectal Pulse Rate 110 H Pulse Rate [Radial] 140 H Respiratory Rate 37 H 16 17 Blood Pressure 144/106 H 123/100 H Blood Pressure [Right Arm] 158/11 H Blood Pressure Mean Blood Pressure Mean [Right Arm] 60 Blood Pressure Source [Right Arm] Automatic Cuff Blood Pressure Position [Right Arm] Supine 02 Sat by Pulse Oximetry 100 100 100 Oxygen Delivery Method Mechanical Ventilation Mechanical Ventilation Oxygen Flow Rate (LPM) 15 01/21/24 21:33 07/09/23 21:35 07/09/23 21:40 Temperature Temperature Source Pulse Rate 101 H 103 H 90 Pulse Rate [Radial] Respiratory Rate 18 18 18 Blood Pressure 132/98 H 130/95 H 127/94 H Blood Pressure [Right Arm] Blood Pressure Mean 106 104 100 Blood Pressure Mean [Right Arm] Blood Pressure Source [Right Arm] Blood Pressure Position [Right Arm] 02 Sat by Pulse Oximetry 100 100 100 Oxygen Delivery Method Mechanical Ventilation Mechanical Ventilation Mechanical Ventilation Oxygen Flow Rate (LPM) 07/09/23 21:45 07/09/23 21:50 07/09/23 21:55 Temperature Temperature Source Pulse Rate 89 68 72 Pulse Rate [Radial] Respiratory Rate 18 18 18 Blood Pressure 129/94 H 124/97 H 144/118 H Blood Pressure [Right Arm] Blood Pressure Mean 101 103 124 Blood Pressure Mean [Right Arm] Blood Pressure Source [Right Arm] Blood Pressure Position [Right Arm] 02 Sat by Pulse Oximetry 100 100 100 Oxygen Delivery Method Mechanical Ventilation Mechanical Ventilation Mechanical Ventilation Oxygen Flow Rate (LPM) Lab Data Lab Results 07/09/23 20:43: VBG pH 7.36, VBG pCO2 40.6, VBG pO2 41.9 H, VBG HCO3 22.3 L, VBG Total CO2 23.5, VBG O2 Saturation 73.6 H, VBG Base Excess -3.2 L 07/09/23 20:50: Urine Color Yellow, Urine Appearance Clear, Urine pH 6.0, Ur Specific [place] >= 1.030, Urine Protein 1+, Urine Glucose (UA) 1+, Urine Ketones Negative, Urine Blood Trace-i, Urine Nitrate Negative, Urine Bilirubin Negative, Urine Urobilinogen 0.2, Ur Leukocyte Esterase Negative, Urine RBC Occasional, Urine WBC None, Ur Squamous Epith Cells Occasional, Urine Bacteria None, Urine Opiates Screen Negative, Urine Methadone Screen Negative, Ur Barbituates Screen Negative, Ur Phencyclidine Scrn Negative, Ur Amphetamines Screen Negative, U Benzodiazepines Scrn Positive H, Urine Cocaine Screen Negative, U Marijuana (THC) Screen Positive H 07/09/23 21:00: Lactate 3.7 H 07/09/23 21:16: Ammonia 10 07/09/23 21:33: WBC 5.8, RBC 3.13 L, Hgb 12.1 L, Hct 37.4, MCV 119.5 H, MCH 38.6 H, MCHC 32.3, RDW 15.6, Plt Count 285, MPV 8.5, Neut % (Auto) 81.6 H, Lymph % (Auto) 11.3, [place] % (Auto) 6.3, Eos % (Auto) 0.4, Baso % (Auto) 0.3, Neut # (Auto) 4.7, Lymph # (Auto) 0.7, [place] # (Auto) 0.4, Eos # (Auto) 0.0, Baso # (Auto) 0.0, Sodium 132 L, Potassium 3.0 L, Chloride 100, Carbon Dioxide 26, Anion Gap 9.0, BUN 7, Creatinine 0.40 L, Estimated Creat Clear 163, Estimated GFR 189, Est GFR ( Amer) 228, Glucose 129 H, Calcium 8.7, Total Bilirubin 0.8, AST 89 H, ALT 46, Alkaline Phosphatase 92, Total Protein 6.8, Albumin 4.0, Globulin 2.8, Albumin/Globulin Ratio 1.4, Salicylates < 1.0 L, Acetaminophen < 10 L, Plasma/Serum Alcohol < 10 07/09/23 21:33 07/09/23 21:33 Orders (Tests/Meds): ED MEDICATIONS Generic Name Dose Route Start Last Admin Trade Name Fritz PRN Reason Stop Dose Admin Propofol 100 mls @ 8.981 mls/hr 07/09/23 20:44 07/09/23 20:44 Diprivan 10mg/Ml 100ml Bottle IV 08/08/23 20:43 30 mcg/kg/min .Q11H9M SWAPNIL 8.98 mls/hr Administration Protocol 30 MCG/KG/MIN Midazolam/Sodium Chloride 50 mg in 50 mls @ 0.998 mls/hr 07/09/23 21:30 07/09/23 21:27 Midazolam 50 Mg/50 Ml-0.9%Nacl IV 08/08/23 21:29 0.02 mg/kg/hr .Q24H SWAPNIL 1 mls/hr Administration Protocol 0.02 MG/KG/HR Lactated Ringer's 1,000 mls @ 999 mls/hr 07/09/23 21:36 07/09/23 21:38 Lactated Ringer's 1000 Ml Bag IV 07/09/23 22:36 999 mls/hr .Q1H1M ONE Administration Potassium Chloride/Water 100 mls @ 50 mls/hr 07/09/23 22:05 Potassium Chloride 20meq/100ml Ivpb IV 07/10/23 02:04 Q2H SWAPNIL Sodium Chloride 10 ml 07/09/23 21:09 Sodium Chloride 0.9% 10ml Vial IV 08/08/23 21:08 NEEDED PRN to Dilute Lorazepam inj Sodium Chloride 10 ml 07/09/23 21:09 Sodium Chloride 0.9% 10ml Vial IV 08/08/23 21:08 NEEDED PRN to Dilute Lorazepam inj Discontinued Medications Generic Name Dose Route Start Last Admin Trade Name Freq PRN Reason Stop Dose Admin Etomidate 20 mg 07/09/23 20:38 07/09/23 21:08 Etomidate 40mg/20ml Vial IV 07/09/23 20:39 20 mg ONCE ONE Administration Fentanyl Citrate 40 mcg 07/09/23 20:53 07/09/23 21:08 Fentanyl 100mcg/2ml Vial IV 07/09/23 20:54 40 mcg ONCE ONE Administration Fentanyl Citrate 40 mcg 07/09/23 21:16 07/09/23 21:26 Fentanyl 100mcg/2ml Vial IV 07/09/23 21:17 40 mcg ONCE ONE Administration Lorazepam 2 mg 07/09/23 20:25 07/09/23 21:10 Lorazepam 2mg/Ml Vial IV 07/09/23 20:26 2 mg ONCE ONE Administration Lorazepam 2 mg 07/09/23 20:30 07/09/23 21:10 Lorazepam 2mg/Ml Vial IV 07/09/23 20:31 2 mg ONCE ONE Administration Succinylcholine Chloride 100 mg 07/09/23 20:38 07/09/23 21:08 Succinylcholine 20mg/Ml 10 Ml Mdv IV 07/09/23 20:39 100 mg ONCE ONE Administration ORDERS Category Date Time Status CT cervical spine wo con Stat Cat Scan 07/09/23 20:[address] head/brain wo con Stat Cat Scan 07/09/23 20:43 Completed CXR --portable [XR chest portable] Stat Exams 07/09/23 20:43 Completed Acetaminophen Stat Lab 07/09/23 21:33 Results Ammonia Stat Lab 07/09/23 21:16 Completed CBC w/Auto Diff [Complete Blood Count Auto Diff] Stat Lab 07/09/23 21:33 Completed CMP [Comprehensive Metabolic Panel] Stat Lab 07/09/23 21:33 Results Drug Screen,Urine Stat Lab 07/09/23 20:50 Completed Ethanol [Ethyl Alcohol] Stat Lab 07/09/23 21:33 Completed Free T4 (Free Thyroxine) Stat Lab 07/09/23 21:33 Received HCG Qualitative, Serum Stat Lab 07/09/23 21:53 Ordered Lactic Acid Stat Lab 07/09/23 21:00 Completed Salicylate Stat Lab 07/09/23 21:33 Results TSH [Thyroid Stimulating Hormone] Stat Lab 07/09/23 21:33 Results UA [Urinalysis and Microscopic] Stat Lab 07/09/23 20:50 Completed VBG [Venous Blood Gas] Stat RT 07/09/23 20:43 Completed ECG Data Tracing #1: Independently interpreted by me, rate is 112, rhythm is regular, axis is normal, no ST elevation in anatomical contiguous leads, QTc 388. Medical Decision Narrative: In summary patient is a 28-year-old female with past medical history described above who presents emergency department for evaluation of seizure-like activity. Patient is tachycardic and tachypneic upon arrival, waxing and waning levels of consciousness, mydriatic pupils, does not follow commands, grossly encephalopathic. Patient has a scalp hematoma over posterior left calvarium. 4 mg of IV Ativan was administered and 2 mg aliquots in sequence in an attempt for chemical sedation which was unsuccessful. Differential diagnosis includes status epilepticus versus agitated delirium. Agitated delirium may be secondary to toxic ingestion of unknown etiology. Given tachycardia, tachypnea, mydriatic pupils sympathomimetic toxicity is on the differential. Given that intracranial hemorrhage remains on the differential and patient is noncompliant with waxing waning levels of consciousness it was necessary to undergo intubation to facilitate physical exam, workup, imaging. Patient was intubated with succinylcholine and etomidate. Postintubation sedation with propofol and push dose fentanyl 40 mcg. Initial workup reviewed by me, compensated acid-base status status postintubation, lactate 3.7, urinalysis interpreted by me and not consistent with infection. UDS positive for marijuana and benzodiazepines ho wever benzos have been administered prior to arrival.. Chest x-ray informally interpreted by me shows appropriate ET tube placement, appropriate NG tube placement. CT head informally interpreted by me, no large intra-axial hemorrhage. Formal head CT read shows large left parietal scalp hematoma, no calvarial fracture, CT cervical spine shows no acute osseous findings. Hematologic labs reviewed by me, no significant leukocytosis, mild hyponatremia, hypokalemia 3.0 which is higher explain patient's seizures but will be repleted. Lactate 3.7 patient will be given 1 L crystalloid. hCG, TSH, free T4 and ethanol level pending. The case was discussed with Dr. Campbell at [facility] who graciously accepted patient for transfer for continued evaluation at this time. Current differential includes status epilepticus versus agitated delirium. Procedure: Procedure performed was rapid sequence intubation. Indication was encephalopathy. Procedure performed by Carl Mitchell. Using video-assisted laryngoscopy with a MAC 3 glide scope blade a 7.0 ETT was advanced through the vocal cords. Number of attempts was 2. No desaturations. End-tidal color change or detected, bilateral breath sounds auscultated. Critical Care Critical Care Time Critical Care Time: Yes Attestation: On 07/09/23, the high probability of a clinically significant, sudden or life threatening deterioration of the following system(s) required my full and direct attention, intervention and personal management. The time I documented below is in addition to time spent performing reported procedures but includes the following listed in this critical care notation. Total Time Total Critical Care Time: 45
--- NOTE | 2023-07-09 20:52 | ECG_ITS ---
APPROVED REPORT Exam: Resting ECG HR:112 bpm ECG Measurements Heart Rate 112 AXES ND 120 P 66 QRSd 86 QRS 70 QT 322 T 90 QTc 388 Conclusion SINUS TACHYCARDIA ABNORMAL RHYTHM ECG UNCONFIRMED REPORT Electronically signed by : Dell Spivey MD 07/10/2023 17:29:09
[2023-07-09 21:00] LABS: Microscopic, Urine URINE MICROSCOPIC (MICROSCOPIC)
[2023-07-09 21:04] LABS: Appearance,Urine CLEAR (Clear); Bilirubin,Urine Negative (Negative); Blood, Urine TRACE-I (Negative); Color,Urine YELLOW (Yellow); Glucose,Urine (UA) 1+ (Negative); Ketones,Urine Negative (Negative); Leukocyte Esterase,Urine Negative (Negative); Nitrate,Urine Negative (Negative); Protein,Urine 1+ (Negative); Specific Gravity, Urine >= 1.030 (1.005-1.030); Urobilinogen,Urine 0.2 EU/dl (0.2)
[2023-07-09] MEDS: SUCCINYLCHOLINE 20MG/ML 10 ML MDV 100 MG IV (21:08)
[2023-07-09] MEDS: ETOMIDATE 40MG/20ML VIAL 20 MG IV (21:08)
[2023-07-09] MEDS: FENTANYL 100MCG/2ML VIAL 40 MCG IV ×3 (21:08→22:40)
[2023-07-09] MEDS: LORazepam 2MG/ML VIAL 2 MG IV ×2 (21:10)
[2023-07-09 21:16] LABS: Barbiturates Screen,Urine Negative ng/ml (<200)
[2023-07-09 21:17] LABS: Benzodiazepines Screen,Urine Positive ng/ml (<200)
[2023-07-09 21:18] LABS: Amphetamine/Metha Screen,Urine Negative ng/ml (<1000); Cannabinoid Screen,Urine Positive ng/ml (<50)
[2023-07-09 21:19] LABS: Cocaine Screen,Urine Negative ng/ml (<300)
[2023-07-09 21:20] LABS: Methadone Screen,Urine Negative ng/ml (<300); Opiate Screen,Urine Negative ng/ml (<300)
[2023-07-09 21:20] LABS: Lactic Acid 3.7 mmol/L (0.7-2.1)
[2023-07-09 21:21] LABS: Phencyclidine Screen,Urine Negative ng/ml (<25)
[2023-07-09 21:27] LABS: VBG Base Excess -3.2 mmol/L (-2.4-2.3); VBG HCO3 22.3 mmol/L (23-30); VBG Oxygen Saturation 73.6 % (50-70); VBG PCO2 40.6 mmol/L (35-51); VBG PH 7.36 mmol/L (7.31-7.41); VBG PO2 41.9 mmol/L (28-40); VBG Total CO2 23.5 mmol/L (23-27)
[2023-07-09] MEDS: MIDAZOLAM HCL IN 0.9 % NACL/PF 50 MG/50 ML PLAST..BAG IV (21:27)
[2023-07-09 21:29] LABS: RBC,Urine Occasional #/hpf (0-3); Squamous Epithelial Cell,Urine Occasional #/hpf (0-5)
[2023-07-09 21:33] LABS: Ammonia 10 umol/L (9-30)
[2023-07-09] MEDS: LACTATED RINGERS 1000ML 1,000 ML 999 ML IV (21:38)
[2023-07-09 21:43] LABS: Basophils % 0.3 % (0.1-2.0); Eosinophils % 0.4 % (0.1-12.0); Hematocrit 37.4 % (37.0-47.0); Hemoglobin 12.1 g/dL (12.2-16.2); Lymphocytes # 0.7 K/mm3 (0.7-4.5); Lymphocytes % 11.3 % (10-50); Mean Corpuscular HGB Conc 32.3 g/dL (31.8-35.4); Mean Corpuscular Hemoglobin 38.6 pg (27.0-31.2); Mean Corpuscular Volume 119.5 fl (81-99); Mean Platelet Volume 8.5 fl (7.4-10.4); Monocytes # 0.4 K/mm3 (0.1-1.0); Monocytes % 6.3 % (1.7-9.3); Neutrophils # 4.7 K/mm3 (1.8-7.8); Neutrophils % 81.6 % (37.0-80.0); Platelet Count 285 K/mm3 (142-424); Red Blood Count 3.13 M/mm3 (4.20-5.40); Red Cell Distribution Width 15.6 % (11.5-17.5); White Blood Count 5.8 K/mm3 (4.8-10.8)
[2023-07-09 21:46] LABS: Chloride 100 mmol/L (98-107); Sodium 132 mmol/L (136-145)
[2023-07-09 21:48] LABS: Blood Urea Nitrogen 7 mg/dl (7-17); Creatinine Clearance Estimated 163 mL/min (50-200); Estimated Glomerular Filt Rate 189 ml/min (>60); GFR (African American) 228 ML/MIN (>60)
[2023-07-09 21:49] LABS: Alanine Aminotransferase 46 U/L (12-78); Albumin/Globulin Ratio 1.4 (1.1-1.8); Alkaline Phosphatase 92 U/L (38-126); Aspartate Amino Transferase 89 U/L (14-36); Bilirubin,Total 0.8 mg/dl (0.2-1.3); Calcium 8.7 mg/dl (8.4-10.2); Carbon Dioxide 26 mmol/L (22.0-30.0); Globulin 2.8 g/dL (1.3-3.2); Glucose 129 mg/dl (74-100); Total Protein,Serum 6.8 g/dl (6.3-8.2)
[2023-07-09 21:50] LABS: Acetaminophen < 10 ug/ml (10-30); Salicylate < 1.0 mg/dL (2.0-20.0)
--- NOTE | 2023-07-09 21:55 | PC.NURSE ---
Calling [facility] center at this time.
--- NOTE | 2023-07-09 21:58 | PC.NURSE ---
o/p with Dr. Campbell at this time.
[2023-07-09 22:01] LABS: Ethyl Alcohol < 10 mg/dl (0-10)
--- NOTE | 2023-07-09 22:04 | PC.NURSE ---
patient accepted to [facility]
[2023-07-09 22:06] LABS: Free T4 (Free Thyroxine) 0.84 ng/dl (0.78-2.19); HCG Qualitative, Serum Negative (Negative)
[2023-07-09] MEDS: KCl 20mEq/100ml 100 ML 50 MEQ IV (22:14)
[2023-07-09 22:20] LABS: Thyroid Stimulating Hormone 9.34 uIU/mL (0.465-4.68)
--- NOTE | 2023-07-09 22:49 | PC.NURSE ---
patient contact list has not been updated. contacts listed are not correct. points of contact are : Sanjuana Kevin [phone], Candice Khan [phone], and David Hart [phone]
--- NOTE | 2023-07-09 23:18 | PC.NURSE ---
pts phone, glasses, vape, clothes, and earings were given to the pts cousin Candice Khan.
[2023-07-10 01:03] LABS: Reflex Lactic Add Lactic Reflex
== END 2023-07-09 23:23 | disposition short-term general hospital (02) ==
PROVIDERS: Emergency Provider Emergency Medicine; PCP Emergency Medicine
DX: G93.40 Encephalopathy, unspecified (principal); G40.901 Epilepsy, unspecified, not intractable, with status epilepticus; E87.6 Hypokalemia
CPT/HCPCS: 31500; 51702; 70450; 71045; 72125; 80053; 80307; 80329; 81001; 82140; 82803; 83605; 84439; 84443; 84703; 85025; 93005; 94002; 96361; 96365; 96366; 96375; 99291; J0330; J2704

== ENCOUNTER 2023-10-17 14:53 | Outpatient (CLI) | payer SELFPAY ==
[2023-10-17 19:43] LABS: Thyroid Stimulating Hormone 0.53 uIU/mL (0.465-4.68)
== END 2023-10-17 23:59 | disposition home or self-care (01) ==
PROVIDERS: PCP Nurse Practitioner Family; Visit Provider Nurse Practitioner Family
DX: R53.83 Other fatigue (principal)
CPT/HCPCS: 84443

== ENCOUNTER 2023-11-02 13:10 | Emergency (ER) | payer SELFPAY ==
[2023-11-02] VITALS (7 sets, daily range): BP systolic 113–159; BP diastolic 75–92; PULSE 94–126; RESP 15–22; TEMP 36.5–37; O2SAT 95–100; BMI 18.6
--- NOTE | 2023-11-02 13:09 | ECG_ITS ---
APPROVED REPORT Exam: Resting ECG HR:95 bpm ECG Measurements Heart Rate 95 AXES MA 145 P 70 QRSd 98 QRS 79 QT 335 T 79 QTc 388 Conclusion SINUS RHYTHM Electronically signed by : GARRET GONZALEZ, 11/02/2023 15:45:06
--- NOTE | 2023-11-02 13:25 | ED_ITS ---
Discharge Plan Disposition Patient Disposition: Home, Self-Care Condition: Good Prescriptions Prescriptions: New chlordiazepoxide HCl 25 mg capsule See Rx Instructions .ROUTE .COMPLEX Qty: 15 0RF Rx Instructions: Day 1: 50mg every 6 hours Day 2: 25mg every 6 hours Day 3: 25mg every 12 hours Day 4: 25mg at night (Rx 15x 25mg tabs) Max 300mg per 24 hours cefdinir 300 mg capsule 300 mg PO BID 7 Days Qty: 14 0RF No Action fluticasone propionate [Flonase Allergy Relief] 50 mcg/actuation spray,suspension 1 - 2 spray intranasal DAILY Qty: 16 2RF Rx Instructions: administer into each nostril daily cetirizine [Zyrtec] 10 mg tablet 10 mg PO DAILY Qty: 30 2RF Vraylar 1.5 mg capsule 1.5 mg PO DAILY Qty: 30 2RF naltrexone 50 mg tablet PO thiamine HCl (vitamin B1) 100 mg tablet PO hydroxyzine HCl 25 mg tablet 25 mg PO TID PRN (Reason: nausea and vomiting) Qty: 60 2RF folic acid 1 mg tablet 1 mg PO DAILY Qty: 30 3RF ondansetron 4 mg tablet,disintegrating 4 mg PO Q8H PRN (Reason: nausea and vomiting) Qty: 10 0RF Referrals Follow up/Referrals: Provider,Referral, [Primary Care Provider] - See instructions Activity Restrictions/Add. Instructions Additional Instructions/Restrictions: Call your family doctor to establish care for this visit to the emergency department and schedule follow-up within 48 hours to ensure improvement. If you have any worsening of your condition or any other concerning signs or symptoms, return to the emergency department or your primary care doctor for further evaluation. Clinical Impressions Clinical Impression: Alcohol withdrawal Instructions Patient Instructions: DI for Diarrhea and Traveler's Diarrhea -- Adult, DI for Diarrhea and Traveler's Diarrhea -- Child, DI for Nausea -- Adult, DI for Nausea -- Child Discharge ED Provider: Joaquin Mullen General Adult HPI <Joaquin Mullen MD - Last Filed: 11/02/23 15:34> General Chief complaint: Nausea/Vomiting/Diarrhea Stated complaint: CP Time Seen by Provider: 11/02/23 13:12 Mode of Arrival: Ambulatory Source of Information: Patient Limitations: No Limitations Description of Symptoms (Recalled from ER Triage Doc. by RN): numbness and tingling to left side. anxiety. nausea and vomiting x3 days History of Present Illness HPI narrative: 28-year-old female history of anxiety, depression, recent hospital stay for status epilepticus presenting with general complaints. Patient states that she has felt unwell for the last 3 days. Started having nausea, vomiting, diarrhea 2 days ago and has been unable to keep much p.o. intake. Denies fever, chills, abdominal pain, urinary symptoms, abnormal vaginal discharge or bleeding, cough, or any other complaints. States that her severe anxiety is caused her to start shaking, she feels that it is related to her complaints today. Today, she states that she started breathing really quickly, she went numb all over, and began to clam up. Came to the emergency department for further evaluation. Please note that above description of symptoms, in this electronic medical record under categorization of recalled from ER triage doctor by RN are reflective of an initial nursing assessment, however, is not reflective of my full history and physical exam that was personally taken and clarified. Consequentially, this preceding description of symptoms, which may include the patient's categorized chief complaint in the EMR, do not reflect my personal clinical impression, and the ultimate description of history of present illness and patient stated complaints should be deferred to this section of the note. Unless stated otherwise or congruent with this section of the note, additional signs, symptoms, or incongruence should be interpreted as inaccurate with my clinical impression. Related Data Home Medications Medication Instructions Recorded Confirmed naltrexone 50 mg tablet mg PO 08/02/23 10/17/23 thiamine HCl (vitamin B1) 100 mg mg PO 08/02/23 10/17/23 tablet Previous Rx's Medication Instructions Recorded ondansetron 4 mg disintegrating 4 mg PO Q8H PRN nausea and 05/26/23 tablet vomiting #10 tabs folic acid 1 mg tablet 1 mg PO DAILY #30 tabs 08/02/23 hydroxyzine HCl 25 mg tablet 25 mg PO TID PRN nausea and 08/02/23 vomiting #60 tabs cariprazine 1.5 mg capsule 1.5 mg PO DAILY #30 caps 10/17/23 (Vraylar) cetirizine 10 mg tablet (Zyrtec) 10 mg PO DAILY #30 tabs 10/17/23 fluticasone propionate 50 1 - 2 spray intranasal DAILY #16 10/17/23 mcg/actuation nasal grams spray,suspension (Flonase Allergy Relief) cefdinir 300 mg capsule 300 mg PO BID 7 days #14 caps 11/02/23 chlordiazepoxide HCl 25 mg capsule See Rx Instructions .Route 11/02/23 .COMPLEX #15 caps Allergies Allergy/AdvReac Type Severity Reaction Status Date / Time No Known Drug Allergies Allergy Unknown Verified 10/17/23 13:48 [NKDA] PFS <Joaquin Mullen MD - Last Filed: 11/02/23 15:34> [facility] Disclaimer: The information contained in this section may have been updated after the patient was seen, as this information can be updated by other users. Medical History Photoallergic dermatitis Burn from the sun Exposure to COVID-19 virus Viral syndrome Otitis externa Ankle sprain Chronic nausea URI (upper respiratory infection) Family History Family/Other Cancer Social History Smoking Status: Current every day smoker tobacco type: cigarettes packs per day: 1 and e-cigarettes second hand exposure: No alcohol intake: never substance use type: denies use current occupational status: other Travel in the last 8 weeks: None <Joaquin Mullen MD - Last Filed: 11/02/23 15:34> ROS Obtained: Yes All systems reviewed & no additional complaints except as documented Physical Exam <Joaquin Mullen MD - Last Filed: 11/02/23 15:34> General General appearance: alert, in no apparent distress and anxious Head Head exam: atraumatic and normocephalic Eye Eye exam: Present normal appearance, PERRL and EOMI ENT ENT exam: Present mucous membranes dry Neck Neck exam: Present normal inspection, full ROM and trachea midline Respiratory Respiratory exam: Present normal lung sounds bilaterally; Absent respiratory distress, wheezes, stridor, accessory muscle use or prolonged expiratory phase Cardiovascular Cardiovascular exam: Present normal rhythm and tachycardia Abdominal Exam Abdominal exam: Present soft; Absent distention, tenderness, guarding, rebound or rigidity Extremities Exam Extremities exam: Absent edema Neurological Exam Neurological exam: Present alert, oriented X3, CN II-XII intact and normal gait; Absent motor sensory deficit Skin Skin exam: Present warm and dry; Absent diaphoresis or erythema Medical Decision Making <Joaquin Mullen MD - Last Filed: 11/02/23 15:34> Medical Records Medical records reviewed: Yes I reviewed the patient's medical records. Filippo Inquiry Pt receiving controlled substance: No Filippo was queried for this patient: No Vital Signs: 11/02/23 13:11 11/02/23 13:49 11/02/23 14:00 Temperature 98.6 F Temperature Source Oral Pulse Rate 116 H 94 H Pulse Rate [Right] 120 H Respiratory Rate 22 15 20 Blood Pressure 116/92 H 120/83 Blood Pressure [Right Arm] 159/75 H Blood Pressure Mean 97 94 Blood Pressure Mean [Right Arm] 103 02 Sat by Pulse Oximetry 95 98 100 Oxygen Delivery Method Room Air 11/02/23 14:30 11/02/23 15:00 11/02/23 15:30 Temperature Temperature Source Pulse Rate 107 H 126 H 104 H Pulse Rate [Right] Respiratory Rate 19 19 Blood Pressure 113/80 128/89 129/78 Blood Pressure [Right Arm] Blood Pressure Mean 87 101 Blood Pressure Mean [Right Arm] 02 Sat by Pulse Oximetry 100 99 99 Oxygen Delivery Method Room Air Room Air Lab Data Lab Results 11/02/23 13:16: VBG pH 7.48 H, VBG pCO2 32.4 L, VBG pO2 83.6 H, VBG HCO3 23.5, VBG Total CO2 24.5, VBG O2 Saturation 95.8 H, VBG Base Excess 0.0, VBG Lactic Acid 1.7 11/02/23 13:25: WBC 6.6, RBC 3.98 L, Hgb 13.0, Hct 40.2, MCV 100.9 H, MCH 32.7 H , MCHC 32.4, RDW 16.8, Plt Count 235, MPV 8.0, Neut % (Auto) 61.7, Lymph % (Auto) 32.8, Jay % (Auto) 3.9, Eos % (Auto) 0.7, Baso % (Auto) 0.8, Neut # (Auto) 4.1, Lymph # (Auto) 2.2, Jay # (Auto) 0.3, Eos # (Auto) 0.1, Baso # (Auto) 0.1, Sodium 138, Potassium 3.3 L, Chloride 101, Carbon Dioxide 23, Anion Gap 17.3 H, BUN 7, Creatinine 0.80, Estimated Creat Clear 78, Estimated GFR 85, Est GFR ( Amer) 103, Glucose 123 H, Calcium 8.8, Total Bilirubin 1.3, AST 114 H, ALT 54, Alkaline Phosphatase 200 H, Total Protein 7.4, Albumin 3.9, G lobulin 3.5 H, Albumin/Globulin Ratio 1.1, HCG, Quant < 2 11/02/23 13:34: Urine Color Yellow, Urine Appearance Clear, Urine pH 6.0, Ur Specific [place] 1.025, Urine Protein Negative, Urine Glucose (UA) Negative, Urine Ketones 1+, Urine Blood Trace-i, Urine Nitrate Negative, Urine Bilirubin 1+ A, Urine Urobilinogen 0.2, Ur Leukocyte Esterase Negative, Urine RBC Occasional, Urine WBC 5-10, Ur Squamous Epith Cells 3-5, Urine Bacteria 4+, Urine Opiates Screen Negative, Urine Methadone Screen Negative, Ur Barbituates Screen Negative, Ur Phencyclidine Scrn Negative, Ur Amphetamines Screen Negative, U Benzodiazepines Scrn Negative, Urine Cocaine Screen Negative, U Marijuana (THC) Screen Positive H 11/02/23 13:25 11/02/23 13:25 Orders (Tests/Meds): ED MEDICATIONS Generic Name Dose Route Start Last Admin Trade Name Freq PRN Reason Stop Dose Admin Sodium Chloride 10 ml 11/02/23 13:16 Sodium Chloride 0.9% 10ml Vial IV 12/02/23 13:15 NEEDED PRN to Dilute Lorazepam inj Discontinued Medications Generic Name Dose Route Start Last Admin Trade Name Freq PRN Reason Stop Dose Admin Cefdinir 300 mg 11/02/23 14:58 11/02/23 15:34 Cefdinir 300mg Capsule PO 11/02/23 14:59 300 mg ONCE ONE Administration Chlordiazepoxide HCl 50 mg 11/02/23 15:03 11/02/23 15:34 Chlordiazepoxide 25mg Capsule PO 11/02/23 15:04 50 mg ONCE ONE Administration Diazepam 5 mg 11/02/23 13:27 11/02/23 13:34 Diazepam 5mg Tablet PO 11/02/23 13:28 5 mg ONCE ONE Administration Magnesium Sulfate 2 gm in 50 mls @ 50 mls/hr 11/02/23 13:16 11/02/23 13:34 Magnesium Sulfate 2gm/50ml Premix IV 11/02/23 14:15 50 mls/hr ONCE ONE Administration Lactated Ringer's 2,000 mls @ 999 mls/hr 11/02/23 13:18 11/02/23 13:33 Lactated Ringer's 1000 Ml Bag IV 11/02/23 15:18 999 mls/hr .Q2H1M ONE Administration Lorazepam 1 mg 11/02/23 13:16 11/02/23 13:34 Lorazepam 2mg/Ml Vial IV 11/02/23 13:17 1 mg ONCE ONE Administration Ondansetron HCl 4 mg 11/02/23 13:18 11/02/23 13:34 Ondansetron 4mg/2ml Vial IV 11/02/23 13:19 4 mg ONCE ONE Administration Potassium Chloride 40 meq 11/02/23 14:50 11/02/23 14:55 Potassium Chloride 20meq Tab PO 11/02/23 14:51 40 meq ONCE ONE Administration ORDERS Category Date Time Status CBC w/Auto Diff [Complete Blood Count Auto Diff] Stat Lab 11/02/23 13:25 Completed CMP [Comprehensive Metabolic Panel] Stat Lab 11/02/23 13:25 Completed HCG,Quantitative Stat Lab 11/02/23 13:25 Completed UA [Urinalysis and Microscopic] Stat Lab 11/02/23 13:34 Completed UDS [Drug Screen,Urine] Stat Lab 11/02/23 13:34 Completed Urine Culture Stat Micro 11/02/23 13:34 Received VBG [Venous Blood Gas] Stat RT 11/02/23 13:16 Completed Medical Decision Narrative: 28-year-old female history of anxiety, depression, recent hospital stay for status epilepticus presenting with general complaints. Patient states that she has felt unwell for the last 3 days. Started having nausea, vomiting, diarrhea 2 days ago and has been unable to keep much p.o. intake. Denies fever, chills, abdominal pain, urinary symptoms, abnormal vaginal discharge or bleeding, cough, or any other complaints. States that her severe anxiety is caused her to start shaking, she feels that it is related to her complaints today. Today, she states that she started breathing really quickly, she went numb all over, and began to clam up. Denies drug or alcohol use. Came to the emergency department for further evaluation. History was obtained via conversation with patient. On arrival, patient hemodynamically stable, alert, oriented x4, appropriate, GCS 15, moving all extremities spontaneously, pupils equal and reactive to light. Full physical exam performed and significant for tremulous, anxious appearing woman in no acute distress. She is tachycardic, hypertensive, but well-appearing and nontoxic. Abdomen is soft, nontender, nondistended, lungs are clear to auscultation bilaterally, cardiac exam otherwise normal. Differential includes alcohol withdrawal, other substance withdrawal, intoxication, metabolic abnormality, dehydration, among others. Patient was given 1 mg Ativan IV, 5 mg Valium p.o. for symptomatic management and correction of underlying abnormalities. Workup independently interpreted and significant for hypokalemia, this was repleted p.o. Patient also given IV magnesium 2 g. Nonactionable hematologic workup otherwise, negative, urinalysis was concerning for UTI. On reevaluation, patient resting comfortably in bed and appears much better. Further conversation with patient and visitor reveals that patient typically drinks every day, less drink was 48 hours ago, patient was given 50 mg p.o. Librium. Also given cefdinir 300 mg. Prior to reevaluation, care handed off to oncoming physician. Telephone Plant Power Operator disclaimer Much of this encounter note is an electronic acid recovery operator spoken language to printed text. Electronic acid recovery operator of the spoken language may permit errors. Although I have reviewed the note, some errors may still exist. <Aviva Russ, DO - Last Filed: 11/02/23 16:24> Vital Signs: 11/02/23 13:11 11/02/23 13:49 11/02/23 14:00 Temperature 98.6 F Temperature Source Oral Pulse Rate 116 H 94 H Pulse Rate [Right] 120 H Respiratory Rate 22 15 20 Blood Pressure 116/92 H 120/83 Blood Pressure [Right Arm] 159/75 H Blood Pressure Mean 97 94 Blood Pressure Mean [Right Arm] 103 02 Sat by Pulse Oximetry 95 98 100 Oxygen Delivery Method Room Air 11/02/23 14:30 11/02/23 15:00 11/02/23 15:30 Temperature Temperature Source Pulse Rate 107 H 126 H 104 H Pulse Rate [Right] Respiratory Rate 19 19 Blood Pressure 113/80 128/89 129/78 Blood Pressure [Right Arm] Blood Pressure Mean 87 101 Blood Pressure Mean [Right Arm] 02 Sat by Pulse Oximetry 100 99 99 Oxygen Delivery Method Room Air Room Air Lab Data Lab Results 11/02/23 13:16: VBG pH 7.48 H, VBG pCO2 32.4 L, VBG pO2 83.6 H, VBG HCO3 23.5, VBG Total CO2 24.5, VBG O2 Saturation 95.8 H, VBG Base Excess 0.0, VBG Lactic Acid 1.7 11/02/23 13:25: WBC 6.6, RBC 3.98 L, Hgb 13.0, Hct 40.2, MCV 100.9 H, MCH 32.7 H , MCHC 32.4, RDW 16.8, Plt Count 235, MPV 8.0, Neut % (Auto) 61.7, Lymph % (Auto) 32.8, Jay % (Auto) 3.9, Eos % (Auto) 0.7, Baso % (Auto) 0.8, Neut # (Auto) 4.1, Lymph # (Auto) 2.2, Jay # (Auto) 0.3, Eos # (Auto) 0.1, Baso # (Auto) 0.1, Sodium 138, Potassium 3.3 L, Chloride 101, Carbon Dioxide 23, Anion Gap 17.3 H, BUN 7, Creatinine 0.80, Estimated Creat Clear 78, Estimated GFR 85, Est GFR ( Amer) 103, Glucose 123 H, Calcium 8.8, Total Bilirubin 1.3, AST 114 H, ALT 54, Alkaline Phosphatase 200 H, Total Protein 7.4, Albumin 3.9, G lobulin 3.5 H, Albumin/Globulin Ratio 1.1, HCG, Quant < 2 11/02/23 13:34: Urine Color Yellow, Urine Appearance Clear, Urine pH 6.0, Ur Specific [place] 1.025, Urine Protein Negative, Urine Glucose (UA) Negative, Urine Ketones 1+, Urine Blood Trace-i, Urine Nitrate Negative, Urine Bilirubin 1+ A, Urine Urobilinogen 0.2, Ur Leukocyte Esterase Negative, Urine RBC Occasional, Urine WBC 5-10, Ur Squamous Epith Cells 3-5, Urine Bacteria 4+, Urine Opiates Screen Negative, Urine Methadone Screen Negative, Ur Barbituates Screen Negative, Ur Phencyclidine Scrn Negative, Ur Amphetamines Screen Negative, U Benzodiazepines Scrn Negative, Urine Cocaine Screen Negative, U Marijuana (THC) Screen Positive H Orders (Tests/Meds): ED MEDICATIONS Generic Name Dose Route Start Last Admin Trade Name Freq PRN Reason Stop Dose Admin Sodium Chloride 10 ml 11/02/23 13:16 Sodium Chloride 0.9% 10ml Vial IV 12/02/23 13:15 NEEDED PRN to Dilute Lorazepam inj Discontinued Medications Generic Name Dose Route Start Last Admin Trade Name Freq PRN Reason Stop Dose Admin Cefdinir 300 mg 11/02/23 14:58 11/02/23 15:34 Cefdinir 300mg Capsule PO 11/02/23 14:59 300 mg ONCE ONE Administration Chlordiazepoxide HCl 50 mg 11/02/23 15:03 11/02/23 15:34 Chlordiazepoxide 25mg Capsule PO 11/02/23 15:04 50 mg ONCE ONE Administration Diazepam 5 mg 11/02/23 13:27 11/02/23 13:34 Diazepam 5mg Tablet PO 11/02/23 13:28 5 mg ONCE ONE Administration Magnesium Sulfate 2 gm in 50 mls @ 50 mls/hr 11/02/23 13:16 11/02/23 13:34 Magnesium Sulfate 2gm/50ml Premix IV 11/02/23 14:15 50 mls/hr ONCE ONE Administration Lactated Ringer's 2,000 mls @ 999 mls/hr 11/02/23 13:18 11/02/23 13:33 Lactated Ringer's 1000 Ml Bag IV 11/02/23 15:18 999 mls/hr .Q2H1M ONE Administration Lorazepam 1 mg 11/02/23 13:16 11/02/23 13:34 Lorazepam 2mg/Ml Vial IV 11/02/23 13:17 1 mg ONCE ONE Administration Ondansetron HCl 4 mg 11/02/23 13:18 11/02/23 13:34 Ondansetron 4mg/2ml Vial IV 11/02/23 13:19 4 mg ONCE ONE Administration Potassium Chloride 40 meq 11/02/23 14:50 11/02/23 14:55 Potassium Chloride 20meq Tab PO 11/02/23 14:51 40 meq ONCE ONE Administration ORDERS Category Date Time Status CBC w/Auto Diff [Complete Blood Count Auto Diff] Stat Lab 11/02/23 13:25 Completed CMP [Comprehensive Metabolic Panel] Stat Lab 11/02/23 13:25 Completed HCG,Quantitative Stat Lab 11/02/23 13:25 Completed UA [Urinalysis and Microscopic] Stat Lab 11/02/23 13:34 Completed UDS [Drug Screen,Urine] Stat Lab 11/02/23 13:34 Completed Urine Culture Stat Micro 11/02/23 13:34 Received VBG [Venous Blood Gas] Stat RT 11/02/23 13:16 Completed Medical Decision Narrative: 28-year-old female history of anxiety, depression, recent hospital stay for status epilepticus presenting with general complaints. Patient states that she has felt unwell for the last 3 days. Started having nausea, vomiting, diarrhea 2 days ago and has been unable to keep much p.o. intake. Denies fever, chills, abdominal pain, urinary symptoms, abnormal vaginal discharge or bleeding, cough, or any other complaints. States that her severe anxiety is caused her to start shaking, she feels that it is related to her complaints today. Today, she states that she started breathing really quickly, she went numb all over, and began to clam up. Denies drug or alcohol use. Came to the emergency department for further evaluation. History was obtained via conversation with patient. On arrival, patient hemodynamically stable, alert, oriented x4, appropriate, GCS 15, moving all extremities spontaneously, pupils equal and reactive to light. Full physical exam performed and significant for tremulous, anxious appearing woman in no acute distress. She is tachycardic, hypertensive, but well-appearing and nontoxic. Abdomen is soft, nontender, nondistended, lungs are clear to auscultation bilaterally, cardiac exam otherwise normal. Differential includes alcohol withdrawal, other substance withdrawal, intoxication, metabolic abnormality, dehydration, among others. Patient was given 1 mg Ativan IV, 5 mg Valium p.o. for symptomatic management and correction of underlying abnormalities. Workup independently interpreted and significant for hypokalemia, this was repleted p.o. Patient also given IV magnesium 2 g. Nonactionable hematologic workup otherwise, negative, urinalysis was concerning for UTI. On reevaluation, patient resting comfortably in bed and appears much better. Further conversation with patient and visitor reveals that patient typically drinks every day, less drink was 48 hours ago, patient was given 50 mg p.o. Librium. Also given cefdinir 300 mg. Prior to reevaluation, care handed off to oncoming physician. Telephone Plant Power Operator disclaimer Much of this encounter note is an electronic acid recovery operator spoken language to printed text. Electronic acid recovery operator of the spoken language may permit errors. Although I have reviewed the note, some errors may still exist. DO Jeb: On my assessment the patient after Librium, CIWA improved from 18-8. She is resting comfortably. I offered admission for alcohol detox, however she states she would rather go home with Librium taper. She is also given antibiotic for treatment of UTI. She was given very strict and precautions her symptoms become unmanageable at home. She expressed understanding and agreement. She was discharged after all questions were answered. Critical Care <Joaquin Mullen MD - Last Filed: 11/02/23 15:34> Critical Care Time Critical Care Time: No
--- NOTE | 2023-11-02 13:27 | PC.NURSE ---
pt is visibly tremulous. reports nausea.
[2023-11-02] MEDS: LACTATED RINGERS 1000ML 2,000 ML 999 ML IV (13:33)
[2023-11-02 13:34] LABS: Basophils # 0.1 K/mm3 (0-0.2); Basophils % 0.8 % (0.1-2.0); Eosinophils # 0.1 K/mm3 (0.0-0.4); Eosinophils % 0.7 % (0.1-12.0); Hematocrit 40.2 % (37.0-47.0); Lymphocytes # 2.2 K/mm3 (0.7-4.5); Lymphocytes % 32.8 % (10-50); Mean Corpuscular HGB Conc 32.4 g/dL (31.8-35.4); Mean Corpuscular Hemoglobin 32.7 pg (27.0-31.2); Mean Corpuscular Volume 100.9 fl (81-99); Monocytes # 0.3 K/mm3 (0.1-1.0); Monocytes % 3.9 % (1.7-9.3); Neutrophils # 4.1 K/mm3 (1.8-7.8); Neutrophils % 61.7 % (37.0-80.0); Platelet Count 235 K/mm3 (142-424); Red Blood Count 3.98 M/mm3 (4.20-5.40); Red Cell Distribution Width 16.8 % (11.5-17.5); White Blood Count 6.6 K/mm3 (4.8-10.8)
[2023-11-02] MEDS: LORazepam 2MG/ML VIAL 1 MG IV (13:34)
[2023-11-02] MEDS: diazePAM 5MG TABLET 5 MG PO (13:34)
[2023-11-02] MEDS: MAGNESIUM SULFATE IN WATER 2 GM/50 ML PIGGYBACK IV (13:34)
[2023-11-02] MEDS: ONDANSETRON 4MG/2ML VIAL 4 MG IV (13:34)
[2023-11-02 13:39] LABS: Microscopic, Urine URINE MICROSCOPIC (MICROSCOPIC)
[2023-11-02 13:45] LABS: Chloride 101 mmol/L (98-107); Sodium 138 mmol/L (136-145)
[2023-11-02 13:46] LABS: Potassium 3.3 mmoL/L (3.5-5.1)
[2023-11-02 13:48] LABS: Alanine Aminotransferase 54 U/L (12-78); Alkaline Phosphatase 200 U/L (38-126); Aspartate Amino Transferase 114 U/L (14-36); Bilirubin,Total 1.3 mg/dl (0.2-1.3); Blood Urea Nitrogen 7 mg/dl (7-17); Creatinine Clearance Estimated 78 mL/min (50-200); Estimated Glomerular Filt Rate 85 ml/min (>60); GFR (African American) 103 ML/MIN (>60)
[2023-11-02 13:49] LABS: Albumin Level 3.9 g/dl (3.5-5.0); Albumin/Globulin Ratio 1.1 (1.1-1.8); Anion Gap 17.3 mEq/L (5-15); Calcium 8.8 mg/dl (8.4-10.2); Carbon Dioxide 23 mmol/L (22.0-30.0); Globulin 3.5 g/dL (1.3-3.2); Glucose 123 mg/dl (74-100); Total Protein,Serum 7.4 g/dl (6.3-8.2)
[2023-11-02 14:09] LABS: Appearance,Urine CLEAR (Clear); Blood, Urine TRACE-I (Negative); Color,Urine YELLOW (Yellow); Glucose,Urine (UA) Negative (Negative); Ketones,Urine 1+ (Negative); Leukocyte Esterase,Urine Negative (Negative); Nitrate,Urine Negative (Negative); Protein,Urine Negative (Negative); Specific Gravity, Urine 1.025 (1.005-1.030); Urobilinogen,Urine 0.2 EU/dl (0.2)
[2023-11-02 14:23] LABS: Benzodiazepines Screen,Urine Negative ng/ml (<200)
[2023-11-02 14:24] LABS: Amphetamine/Metha Screen,Urine Negative ng/ml (<1000)
[2023-11-02 14:25] LABS: Barbiturates Screen,Urine Negative ng/ml (<200); Methadone Screen,Urine Negative ng/ml (<300)
[2023-11-02 14:26] LABS: Cannabinoid Screen,Urine Positive ng/ml (<50); Cocaine Screen,Urine Negative ng/ml (<300)
[2023-11-02 14:27] LABS: Opiate Screen,Urine Negative ng/ml (<300)
[2023-11-02 14:28] LABS: Phencyclidine Screen,Urine Negative ng/ml (<25)
[2023-11-02 14:40] LABS: Lactate Venous 1.7 mmol/L (0.4-2.0); VBG HCO3 23.5 mmol/L (23-30); VBG Oxygen Saturation 95.8 % (50-70); VBG PCO2 32.4 mmol/L (35-51); VBG PH 7.48 mmol/L (7.31-7.41); VBG PO2 83.6 mmol/L (28-40); VBG Total CO2 24.5 mmol/L (23-27)
[2023-11-02 14:43] LABS: HCG,Quantitative < 2 mIU/ml (0-5.42)
[2023-11-02 14:44] LABS: Bilirubin,Urine 1+ (Negative)
[2023-11-02 14:45] LABS: Bacteria,Urine 4+ /lpf; RBC,Urine Occasional #/hpf (0-3)
[2023-11-02] MEDS: POTASSIUM CHLORIDE 20MEQ TAB 40 MEQ PO (14:55)
[2023-11-02] MEDS: CEFDINIR 300MG CAPSULE 300 MG PO (15:34)
--- NOTE | 2023-11-02 15:37 | PC.NURSE ---
rounded on pt. expressed no needs at this time.
--- NOTE | 2023-11-03 10:49 | PC.NURSE ---
discussed urine culture with , pt dc with cefdinir, ntd
== END 2023-11-02 16:42 | disposition home or self-care (01) ==
PROVIDERS: Emergency Provider Emergency Medicine
DX: F10.239 Alcohol dependence with withdrawal, unspecified (principal); E87.6 Hypokalemia; B96.29 Other Escherichia coli [E. coli] as the cause of diseases classified elsewhere; F41.1 Generalized anxiety disorder; R11.2 Nausea with vomiting, unspecified; F17.210 Nicotine dependence, cigarettes, uncomplicated
CPT/HCPCS: 80053; 80307; 81001; 82803; 84702; 85025; 87086; 87088; 87186; 93005; 96365; 96375; 99284; J2405; J3475

== ENCOUNTER 2024-02-06 08:37 | Emergency (ER) | payer SELFPAY ==
[2024-02-06] VITALS (28 sets, daily range): BP systolic 113–154; BP diastolic 80–122; PULSE 72–152; RESP 18–29; TEMP 36.9–38; O2SAT 94–100; BMI 18.8; BMI 20.1
--- NOTE | 2024-02-06 08:40 | ECG_ITS ---
APPROVED REPORT Exam: Resting ECG HR:120 bpm ECG Measurements Heart Rate 120 AXES UT 157 P 78 QRSd 86 QRS 73 QT 332 T 83 QTc 403 Conclusion SINUS TACHYCARDIA Electronically signed by : GARRET GONZALEZ, 02/06/2024 13:30:37
[2024-02-06] MEDS: ETOMIDATE 40MG/20ML VIAL 30 MG IV (08:56)
[2024-02-06] MEDS: SUCCINYLCHOLINE 20MG/ML 10 ML MDV 100 MG IV (08:58)
--- NOTE | 2024-02-06 08:58 | PC.NURSE ---
Dr. Mullen and staff at bedside for RSI.
[2024-02-06] MEDS: propofoL 100 ML 1.5 MG IV (09:00)
--- NOTE | 2024-02-06 09:02 | XR_ITS ---
FINAL REPORT CLINICAL HISTORY: tube placement COMPARISON: 07/09/2023 FINDINGS: CHEST: An endotracheal tube has been placed with its tip 4 cm above the eva. The heart size is normal. The mediastinum is normal. There is no focal infiltrate or edema. There is mild atelectasis present in the right upper lobe with mild volume loss. There are no pleural effusions. There is no pneumothorax. There is no osseous abnormality. IMPRESSION: Endotracheal tube position 4 cm above the eva. Mild atelectasis present in the right upper lobe with mild volume loss. Reviewed, Interpreted and Dictated by Doug Winston MD Transcribed by Leighann Geronimo Authenticated and [facility]
--- NOTE | 2024-02-06 09:04 | PC.NURSE ---
xray at BS
--- NOTE | 2024-02-06 09:12 | PC.NURSE ---
sputum sent to lab
[2024-02-06 09:13] LABS: VBG Base Excess -18.3 mmol/L (-2.4-2.3); VBG Oxygen Saturation 89.5 % (50-70); VBG PCO2 26.8 mmol/L (35-51); VBG PO2 74.7 mmol/L (28-40); VBG Total CO2 10.8 mmol/L (23-27)
[2024-02-06 09:14] LABS: Lactate Venous 15.3 mmol/L (0.4-2.0); VBG PH 7.19 mmol/L (7.31-7.41)
[2024-02-06] MEDS: MIDAZOLAM HCL IN 0.9 % NACL/PF 50 MG/50 ML PLAST..BAG IV (09:15)
[2024-02-06] MEDS: MVI, ADULT NO.1 WITH VIT K 10 ML, THIAMINE HCL 100 MG, MAGNESIUM SULFATE 2 GM in LACTAT... 500 ML IV (09:19)
[2024-02-06 09:21] LABS: Albumin Level 4.2 g/dl (3.5-5.0); Chloride 101 mmol/L (98-107); Sodium 134 mmol/L (136-145)
[2024-02-06 09:22] LABS: Potassium 3.6 mmoL/L (3.5-5.1)
[2024-02-06 09:24] LABS: Alanine Aminotransferase 69 U/L (12-78); Anion Gap 26.6 mEq/L (5-15); Basophils # 0.1 K/mm3 (0-0.2); Blood Urea Nitrogen 4 mg/dl (7-17); Creatinine Clearance Estimated 82 mL/min (50-200); Eosinophils # 0.1 K/mm3 (0.0-0.4); Eosinophils % 0.7 % (0.1-12.0); Estimated Glomerular Filt Rate 85 ml/min (>60); GFR (African American) 103 ML/MIN (>60); Hemoglobin 12.8 g/dL (12.2-16.2); Lymphocytes # 8.2 K/mm3 (0.7-4.5); Lymphocytes % 60.2 % (10-50); MANUAL DIFFERENTIAL MANUAL DIFFERENTIAL (MANUAL DIFF); Mean Corpuscular HGB Conc 28.3 g/dL (31.8-35.4); Mean Corpuscular Hemoglobin 37.5 pg (27.0-31.2); Mean Corpuscular Volume 132.4 fl (81-99); Mean Platelet Volume 9.1 fl (7.4-10.4); Monocytes % 7.4 % (1.7-9.3); Neutrophils # 4.2 K/mm3 (1.8-7.8); Neutrophils % 30.7 % (37.0-80.0); Platelet Count 252 K/mm3 (142-424); Red Cell Distribution Width 15.2 % (11.5-17.5); White Blood Count 13.7 K/mm3 (4.8-10.8)
[2024-02-06 09:25] LABS: Albumin/Globulin Ratio 1.5 (1.1-1.8); Alkaline Phosphatase 132 U/L (38-126); Bilirubin,Total 1.2 mg/dl (0.2-1.3); Calcium 9.2 mg/dl (8.4-10.2); Globulin 2.8 g/dL (1.3-3.2); Glucose 333 mg/dl (74-100)
--- NOTE | 2024-02-06 09:25 | PC.NURSE ---
Called [facility] per Dr Mullen to speak with Neuro about this pt. [facility] advised that they would call back
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
--- NOTE | 2024-02-06 09:29 | PC.NURSE ---
Dr. Mullen speaking with at this time
[2024-02-06 09:31] LABS: Carbon Dioxide 10 mmol/L (22.0-30.0)
--- NOTE | 2024-02-06 09:31 | PC.NURSE ---
Family at BS
[2024-02-06 09:32] LABS: Acetaminophen < 10 ug/ml (10-30); Ethyl Alcohol < 10 mg/dl (0-10); Salicylate < 1.0 mg/dL (2.0-20.0)
--- NOTE | 2024-02-06 09:32 | PC.NURSE ---
Trini from LAB called critical CO2 of 10. Repeated and confirmed. Dr. Mullen made aware.
[2024-02-06 09:34] LABS: ABG Base Excess -10.4 mmol/L (-2.4-2.3); ABG HCO3 16.4 mmhg (22.0-26.0); ABG Oxygen Saturation 64 % (90-100); ABG PCO2 35.9 mmhg (35.0-45.0); ABG PH 7.28 mmol/L (7.35-7.45); ABG TCO2 17.5 mmhg (23-27)
[2024-02-06 09:36] LABS: Lactate Arterial 9.3 mmol/L (0.4-2.0)
[2024-02-06 09:37] LABS: Oxygen 50 %; PEEP 5; Source Right Brachial; Tidal Volume 400; Vent Rate 18
[2024-02-06 09:38] LABS: ABG PO2 40.9 mmhg (80-100)
[2024-02-06 09:45] LABS: HCG,Quantitative < 2 mIU/ml (0-5.42)
[2024-02-06] MEDS: HYDROMORPHONE 2MG/ML SYRINGE 1 MG IV (09:49)
[2024-02-06 09:54] LABS: ABG HCO3 18.5 mmhg (22.0-26.0); ABG Oxygen Saturation 100 % (90-100); ABG PCO2 33.8 mmhg (35.0-45.0); ABG PH 7.36 mmol/L (7.35-7.45); ABG PO2 524.3 mmhg (80-100); ABG TCO2 19.5 mmhg (23-27)
[2024-02-06 09:55] LABS: Oxygen 100 %; PEEP 5; Source Left Femoral; Tidal Volume 400; Vent Rate 20
[2024-02-06 09:56] LABS: Lactate Arterial 7.7 mmol/L (0.4-2.0)
--- NOTE | 2024-02-06 09:56 | PC.NURSE ---
[facility] back and Dr Aguilar was the accepting and the pt is going to [facility] Room [id number]
--- NOTE | 2024-02-06 09:57 | PC.NURSE ---
Contacted [employer]. Waiting wedding consultant back for flight request.
[2024-02-06 10:00] LABS: Aspartate Amino Transferase 254 U/L (14-36)
[2024-02-06] MEDS: droPERidol 5MG/2ML VIAL 5 MG IV (10:00)
--- NOTE | 2024-02-06 10:02 | PC.NURSE ---
[facility] returned call and states [place] [facility] accepted and 22 min ETA. automation and controls supervisor notified
--- NOTE | 2024-02-06 10:09 | PC.NURSE ---
Caitlyn Jackson speaking with family
[2024-02-06] MEDS: levETIRAcetam 4,000 MG in 0.9 % SODIUM CHLORIDE 100 ML 280 MG IV (10:24)
--- NOTE | 2024-02-06 10:34 | PC.NURSE ---
[facility] at receiving report to transfer patient to [facility]
[2024-02-06 10:35] LABS: Eosinophils % 1 % (0-3); Lymphocytes % 61 % (10-50); Macrocytosis 3+; Monocytes % 8 % (2-9); Neutrophils % 30 % (42-76); Platelet Estimate Normal; Total Cells Counted 100
[2024-02-06 10:40] LABS: Benzodiazepines Screen,Urine Positive ng/ml (<200)
[2024-02-06 10:41] LABS: Amphetamine/Metha Screen,Urine Negative ng/ml (<1000)
[2024-02-06 10:42] LABS: Barbiturates Screen,Urine Negative ng/ml (<200); Cannabinoid Screen,Urine Positive ng/ml (<50)
[2024-02-06 10:43] LABS: Cocaine Screen,Urine Negative ng/ml (<300)
[2024-02-06 10:44] LABS: Methadone Screen,Urine Negative ng/ml (<300); Opiate Screen,Urine Negative ng/ml (<300)
[2024-02-06 10:45] LABS: Phencyclidine Screen,Urine Negative ng/ml (<25)
[2024-02-06 13:14] LABS: Reflex Lactic Add Lactic Reflex
[2024-02-08 19:11] LABS: Carbon Monoxide, Whole Blood 3.3 % (0.0-3.6)
--- NOTE | 2024-02-20 17:40 | PEERSUPPORT ---
Peer Support Note Patient Information Patient Information: 02/06/2024 -02/16/2024 Intial Encounter: Indirect PS PT reports to ER via ambulance for seizure. PT has history of AUD. PT transferred to for further treatment. PS builds rapport with family. PS continues to check in on pt through family member. PS Follow up: Direct to PT PS contacts Pt following discharge introducing peer support service and role through [place] [facility] program. PS provided active listening to validate recent challenges to build rapport. PT is interested in scheduling an appointment with [facility] for out patient MAT treatment in hopes to achieve a healthier lifestyle. PT stated she is under an immense amount of stress and emotional distress. PS encourages Pt to seek help through structured programs that offer many approaches to treatment being providers/proper medication, therapy, peer support, targeted case management, accountability, education, and acceptance. PS educates on Vivitrol injectable MAT. PT is interested and agrees to referral. PT request appointment as soon as possible. PS contacts [facility] linking to patient contact provided. PT schedules appointment 02/16/2024. PS meets Pt at [facility] to positively affirm and empower the healthy decision made by the PT.
--- NOTE | 2024-02-20 18:16 | PEERSUPPORT ---
Peer Support Note Patient Information Patient Information: 02/20/2024 4:32 pm PS follows up with PT. PT is proud to share she is actively participating in [facility] on naltrexone for alcohol cravings and urges. PS
== END 2024-02-06 11:15 | disposition short-term general hospital (02) ==
PROVIDERS: Emergency Provider Emergency Medicine
DX: J96.01 Acute respiratory failure with hypoxia (principal); G40.901 Epilepsy, unspecified, not intractable, with status epilepticus; F17.210 Nicotine dependence, cigarettes, uncomplicated; R73.9 Hyperglycemia, unspecified; B95.7 Other staphylococcus as the cause of diseases classified elsewhere
CPT/HCPCS: 31500; 71045; 80053; 80307; 80320; 80329; 82375; 82803; 83605; 84702; 85007; 85025; 85027; 87070; 87077; 87186; 87205; 93005; 96365; 96366; 96375; 99291; G0480; J0330; J1170; J1790; J1953; J2704; J3411; J7120

== ENCOUNTER 2024-03-20 04:04 | Emergency (ER) | payer SELFPAY ==
[2024-03-20 04:06] VITALS: BP 151/97; PULSE 119; RESP 20; TEMP 36.6; O2SAT 98; BMI 21.9
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
[2024-03-20] MEDS: levETIRAcetam 500 MG TABLET PO (04:36)
[2024-03-20 04:59] VITALS: BP 151/97; PULSE 112; RESP 18; TEMP 36.6; O2SAT 98
== END 2024-03-20 04:45 ==
PROVIDERS: Emergency Provider Emergency Medicine
DX: Z00.00 Encounter for general adult medical examination without abnormal findings (principal)
CPT/HCPCS: 99283